=== PATIENT | female | born 2005 | race Hispanic/Latino ===

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

== ENCOUNTER 2024-03-29 00:14 | Emergency (ER) | payer MEDICAID ==
[~2024-03-29] VITALS: Ht 167.6 cm; Wt 93.0 kg
[~2024-03-29 00:14] MED LIST changes: +ASPI-1005 PO; +CEPH500B PO; +EMPA10TA PO; +FERS325 PO; +FURO20TA6 PO; +METF-446 PO; +METO25 PO; +PREN1COM PO; +SACU1TAB PO; +SERT-439 PO; +SPIR25TA6 PO; +TRAZ-185 PO
[2024-03-29 00:40] LABS: SARS-CoV-2, RNA, NAAT NEGATIVE SARS CoV-2 (NEGATIVE)
[2024-03-29 00:44] LABS: INFLUENZA TYPE A Negative For Type A (NEGATIVE); INFLUENZA TYPE B Negative For Type B (NEGATIVE)
[2024-03-29 00:47] LABS: RAPID GROUP A STREP positive (NEGATIVE)
[2024-03-29] MEDS: dexaMETHasone SOD PHOSPHATE 4 MG/ML 1ML VIAL IM ONE (00:49)
[2024-03-29] MEDS: cefTRIAXone 1G VIAL IM ONE (00:49)
[2024-03-29] MEDS ORDERED: AMOX1TAB16 PO (00:56)
--- NOTE | 2024-03-29 00:56 | ERN ---
General Chief Complaint: Fever Stated Complaint: FEVER Time Seen by : 00:22 Time Seen by Midlevel: 00:22 Source: patient History of Present Illness Initial Comments Patient is a 18-year-old female presenting to the emergency department with throat pain. She noticed white spots in the back of her throat so she decided to report to the ER further evaluation. Associated symptoms include fever, and generalized body weakness. Allergies: Coded Allergies: No Known Allergies (Unverified Allergy, Unknown, 12/06/23) Home Meds Active Scripts Amoxicillin/Potassium Clav (Amox Tr-K Clv 875-125 mg Tab) 875 Mg-125 Mg Tablet, 1 EACH PO BID for 10 Days, #20 TAB 0 Refills Prov:ALEXANDRA YANG 03/29/24 Ferrous Sulfate (Ferrous Sulfate) 325 Mg (65 Mg Iron) Ectab, 1 TAB PO DAILY for 30 Days, #30 TAB 1 Refill Prov:MESFIN RAMIREZ MD 02/08/24 Cephalexin Monohydrate (Keflex) 500 Mg Cap, 1 CAP PO TID for 7 Days, #21 CAP 0 Refills Prov:MESFIN RAMIREZ MD 02/07/24 Spironolactone (Spironolactone) 25 Mg Tablet, 25 MG PO DAILY for 30 Days, #30 TAB 1 Refill Prov:MESFIN RAMIREZ MD 02/07/24 Sacubitril/Valsartan (Entresto 24 mg-26 mg Tablet) 24 Mg-26 Mg Tablet, 1 EACH PO BID for 30 Days, #60 TAB 1 Refill Prov:MESFIN RAMIREZ MD 02/07/24 Metoprolol Tartrate (Lopressor) 25 Mg Tab, 25 MG PO TID for 30 Days, #90 TAB 1 Refill Prov:MESFIN RAMIREZ MD 02/07/24 Furosemide (Lasix 20Mg Tab) 20 Mg Tablet, 20 MG PO DAILY for 30 Days, #30 TAB 1 Refill Prov:MESFIN RAMIREZ MD 02/07/24 Empagliflozin (Jardiance) 10 Mg Tablet, 10 MG PO DAILY for 30 Days, #30 TAB 1 Refill Prov:MESFIN RAMIREZ MD 02/07/24 Ondansetron (Ondansetron Odt) 4 Mg Tab.rapdis, 4 MG PO BID for 7 Days, #14 TAB Prov:ALEXANDRA YANG 10/06/23 Reported Medications Aspirin (ASPIRIN 81MG CHEW TAB) 81 Mg Tab.chew, 1 TAB PO DAILY for 30 Days, #30 TAB 0 Refills 02/05/24 Metformin HCl (Metformin HCl) 1,000 Mg Tablet, 1 TAB PO BID for 30 Days, #60 TAB 0 Refills 02/05/24 Sertraline HCl (Sertraline HCl) 50 Mg Tablet, 1 TAB PO DAILY for 30 Days, #30 TAB 0 Refills 02/05/24 Prenat Vit Comb.10/Iron/FA/Dha (Vitafol-Ob+Dha Combo Pack) 65 Mg Iron-1 Mg-250 Mg Combo..pkg, 1 EACH PO DAILY, COMB.PKG 02/05/24 Trazodone HCl (Trazodone HCl) 50 Mg Tablet, 1 TAB PO HS for 30 Days, #30 TAB 0 Refills 02/05/24 Past Medical History Past Medical History: CHF, Diabetes-Type II Medical History Other: PREECLAMPSIA Past Surgical History: Female( History) LMP: Mar 08, 2024 : 1 Para: 1 Aborts: 0 ROS Dictation CONSTITUTIONAL: Negative except for HPI HEAD/FACE: Negative except for HPI EENT: Negative except for HPI RESPIRATORY: Negative except for HPI GASTROINTESTINAL/ABDOMINAL: Negative except for HPI GENITOURINARY: Negative except for HPI MUSCULOSKELETAL: Negative except for HPI INTEGUMENTARY: Negative except for HPI NEUROLOGICAL/PSYCH: Negative except for HPI HEMATOLOGIC/LYMPHATIC: Negative except for HPI All Systems Negative, Except as noted above. 13 point review of systems assessed and all negative except for above. Physical Exam Physical Exam Dictation Vital Signs reviewed General Appearance: Alert, oriented x 3, no acute distress, well developed, nourished. Head and Face: non-traumatic. Eyes: PERRL, pink conjunctivas, eyelid no trauma, anterior chamber with arcus senilis. Ears: Pinnas intact and no signs of trauma or erythema ear canals clear and no discharge TM no erythema Nose: No discharge, no bleeding. Oropharynx: Mouth normal, tongue pink, pharynx clear, erythema to the posterior oropharynx, bilateral tonsillar exudates, no abscesses noted, mucous membrane moist Neck: Supple, non-tender, no thyromegaly, no masses, no JVD, no bruits Breast:Deferred Chest:No tenderness, no crepitus, no paradoxical movement, no retractions Lungs:Clear, well-ventilated, symmetric, no rales, no wheezing, no rhonchi, no stridor, good breath sounds bilaterally Heart: Regular rate, regular rhythm, no murmur, no gallops Vascular: no peripheral edema, Abdomen: Soft, positive bowel sounds, nondistended, no guarding, nontender, no rebound, no masses no hepatomegaly, no splenomegaly, no Koehler's sign, no hernias. Rectal: Deferred Genital: Deferred Neurological: Normal speech, motor function intact, sensory function intact Musculoskeletal: Neck nontender, full range of motion, back nontender, full range of motion, Extremities: nontender, full range of motion Skin: Color pink, dry, no turgor, no rash, no lacerations, no abrasions, no contusions. Lymphatic: Deferred Results Laboratory and Microbiology Lab and Micro Result Laboratory Tests Test 03/29/24 00:18 Influenza Type A Antigen Negative For Type A Influenza Type B Antigen Negative For Type B SARS-CoV-2, RNA, NAAT NEGATIVE SARS CoV-2 Group A Streptococcus Rapid positive (NEGATIVE) *A Labs Reviewed?: Yes MDM MDM: Differential diagnosis: Viral syndrome, upper respiratory infection, strep There are no social concerns with this patient. Prescription drug management Prescriptions will include: Augmentin Medical management and examination interpretation discussions were had by me with other qualified healthcare professionals as indicated for the patient's care. ED Course Orders Procedure Category Date Status Time Covid Rna Naat LAB 03/29/24 Complete 00:19 Influenza Type A & B, LAB 03/29/24 Complete Rapid 00:19 Rapid (Group A Strep) LAB 03/29/24 Complete 00:19 Ceftriaxone 1g Vial PHA 03/29/24 Complete (Rocephine 1g Inj) 00:30 Dexamethasone 4mg/Ml PHA 03/29/24 Complete 1ml Vial (Dexametha 00:30 Current Medications Medications (Trade) Dose Ordered Sig/Alton Route PRN Reason Start Time Stop Time Status Last Admin Dose Admin Ceftriaxone Sodium (ROCEphine 1G INJ) 1 gm ONCE ONCE IM 03/29/24 00:30 03/29/24 00:31 DC 03/29/24 00:49 Dexamethasone Sodium Phosphate (dexaMETHasone 4MG/ML 1ML VIAL) 6 mg ONCE ONCE IM 03/29/24 00:30 03/29/24 00:31 DC 03/29/24 00:49 Vital Signs Date Time Temp Pulse Resp B/P (MAP) Pulse Ox O2 Delivery O2 Flow Rate FiO2 03/29/24 01:15 99.9 97 18 134/62 98 Room Air* 0 21 03/29/24 00:20 100.2 112 20 141/65 98 Room Air* 0 21 03/29/24 00:16 100.2 112 20 127/73 97 Room Air 0 DX & DISP Disposition: Discharge Departure Impression: Primary Impression: Strep pharyngitis Condition: Stable Scripts Amoxicillin/Potassium Clav (Amox Tr-K Clv 875-125 mg Tab) 875 Mg-125 Mg Tablet 1 EACH PO BID for 10 Days, #20 TAB 0 Refills Prov: ALEXANDRA YANG 03/29/24 Additional Instructions: Your physical examination is consistent with strep pharyngitis. Your respiratory swab is positive for strep. You were given antibiotics and steroids in the emergency department. I have given you a prescription for Augmentin for outpatient management. Take your antibiotics as prescribed. Follow up with your primary care doctor in one week for repeat evaluation. Return to the ER for any new or worsening symptoms Referrals: SELF,REFERRAL (PCP) Time of Disposition: 00:55 I have reviewed the case, and I agree with, Diagnosis and Plan I performed the substantive portion of the visit. I have reviewed and personally made and approve the management plan that is documented in the note by myself or the [facility]. I acknowledge for responsibility for the patient's management plan. ALEXANDRA YANG Mar 29, 2024 00:56
[2024-03-29 01:15] VITALS: BP 134/62; PULSE 97; RESP 18; TEMP 99.8; O2SAT 98
== END 2024-03-29 01:18 | disposition home or self-care (01) ==
LOC: EDH 00:14
DX: J02.0 Streptococcal pharyngitis (principal); E11.9 Type 2 diabetes mellitus without complications; I50.9 Heart failure, unspecified; Z20.822 Contact with and (suspected) exposure to COVID-19; Z79.82 Long term (current) use of aspirin; Z79.84 Long term (current) use of oral hypoglycemic drugs; Z79.899 Other long term (current) drug therapy
CPT/HCPCS: 99284; 87635; 87880; 87804 ×2; 96372 ×2; J1100; J0696

== ENCOUNTER 2024-04-28 18:50 | Emergency (ER) | payer MEDICAID ==
[~2024-04-28] VITALS: Ht 170.2 cm; Wt 129.3 kg
[~2024-04-28 18:50] MED LIST changes: +AMOX1TAB16 PO
--- NOTE | 2024-04-28 19:01 | ERN ---
ED Note History of Present Illness Stated Complaint: FLU SYMPTOMS Chief Complaint: Flu Symptoms Time Seen by MD: 18:58 Dictation: PATIENT IS A 18-YEAR-OLD FEMALE COMING IN WITH FLU-LIKE SYMPTOMS SHE HAS HAD FOR 2-3 DAYS TO INCLUDE FRONTAL HEADACHE, CLEAR RHINITIS WITH SORE THROAT AND DRY COUGH. SHE HAS HAD BODY ACHES, NO NAUSEA NO VOMITING NO DIARRHEA SHE HAS BEEN TAKEN TYLENOL NEEDED FOR FEVER PAIN. NO PRIMARY CARE DOCTOR. SHE STATES SHE WAS STAYING WITH SOME PEOPLE THAT WERE SICK WITH COVID HOWEVER SHE DID NOT GO TO THE DOCTOR BECAUSE OF NO MEDICAID. Allergies: Coded Allergies: No Known Allergies (Unverified Allergy, Unknown, 12/06/23) Home Meds Active Scripts Amoxicillin/Potassium Clav (Amox Tr-K Clv 875-125 mg Tab) 875 Mg-125 Mg Tablet, 1 EACH PO BID for 10 Days, #20 TAB 0 Refills Prov:ALEXANDRA YANG 03/29/24 Ferrous Sulfate (Ferrous Sulfate) 325 Mg (65 Mg Iron) Ectab, 1 TAB PO DAILY for 30 Days, #30 TAB 1 Refill Prov:MESFIN RAMIREZ MD 02/08/24 Cephalexin Monohydrate (Keflex) 500 Mg Cap, 1 CAP PO TID for 7 Days, #21 CAP 0 Refills Prov:MESFIN RAMIREZ MD 02/07/24 Spironolactone (Spironolactone) 25 Mg Tablet, 25 MG PO DAILY for 30 Days, #30 TAB 1 Refill Prov:MESFIN RAMIREZ MD 02/07/24 Sacubitril/Valsartan (Entresto 24 mg-26 mg Tablet) 24 Mg-26 Mg Tablet, 1 EACH PO BID for 30 Days, #60 TAB 1 Refill Prov:MESFIN RAMIREZ MD 02/07/24 Metoprolol Tartrate (Lopressor) 25 Mg Tab, 25 MG PO TID for 30 Days, #90 TAB 1 Refill Prov:MESFIN RAMIREZ MD 02/07/24 Furosemide (Lasix 20Mg Tab) 20 Mg Tablet, 20 MG PO DAILY for 30 Days, #30 TAB 1 Refill Prov:MESFIN RAMIREZ MD 02/07/24 Empagliflozin (Jardiance) 10 Mg Tablet, 10 MG PO DAILY for 30 Days, #30 TAB 1 Refill Prov:MESFIN RAMIREZ MD 02/07/24 Ondansetron (Ondansetron Odt) 4 Mg Tab.rapdis, 4 MG PO BID for 7 Days, #14 TAB Prov:ALEXANDRA YANG 10/06/23 Reported Medications Aspirin (ASPIRIN 81MG CHEW TAB) 81 Mg Tab.chew, 1 TAB PO DAILY for 30 Days, #30 TAB 0 Refills 02/05/24 Metformin HCl (Metformin HCl) 1,000 Mg Tablet, 1 TAB PO BID for 30 Days, #60 TAB 0 Refills 02/05/24 Sertraline HCl (Sertraline HCl) 50 Mg Tablet, 1 TAB PO DAILY for 30 Days, #30 TAB 0 Refills 02/05/24 Prenat Vit Comb.10/Iron/FA/Dha (Vitafol-Ob+Dha Combo Pack) 65 Mg Iron-1 Mg-250 Mg Combo..pkg, 1 EACH PO DAILY, COMB.PKG 02/05/24 Trazodone HCl (Trazodone HCl) 50 Mg Tablet, 1 TAB PO HS for 30 Days, #30 TAB 0 Refills 02/05/24 Past Medical History Past Medical History: CHF, Diabetes-Type II Additional Past Medical Hx: PREECLAMPSIA Surgical History: History: Not Applicable LMP: Mar 09, 2025 : 1 Para: 1 Aborts: 0 RN Note Reviewed/Agreed w/PFSH: Yes Review of System Dictation CONSTITUTIONAL: NEGATIVE EXCEPT FOR HPI FEVER CHILLS HEAD/FACE: NEGATIVE EXCEPT FOR HPI EENT: NEGATIVE EXCEPT FOR HPI CLEAR RHINITIS WITH MILD SORE THROAT RESPIRATORY: NEGATIVE EXCEPT FOR HPI COUGH GASTROINTESTINAL/ABDOMINAL: NEGATIVE EXCEPT FOR HPI GENITOURINARY: NEGATIVE EXCEPT FOR HPI MUSCULOSKELETAL: NEGATIVE EXCEPT FOR HPI MALAISE INTEGUMENTARY: NEGATIVE EXCEPT FOR HPI NEUROLOGICAL/PSYCH: NEGATIVE EXCEPT FOR HPI HEMATOLOGIC/LYMPHATIC: NEGATIVE EXCEPT FOR HPI ALL SYSTEMS NEGATIVE, EXCEPT NOTED ABOVE. 13 POINT REVIEW OF SYSTEMS ASSESSED AND ALL NEGATIVE EXCEPT FOR ABOVE. Initial Vital Sign VS Vital Signs Date Time Temp Pulse Resp B/P (MAP) Pulse Ox O2 Delivery O2 Flow Rate FiO2 04/28/24 18:55 101.8 130 20 133/67 97 Room Air 0 04/28/24 20:21 21 Physical Exam Dictation VITAL SIGNS REVIEWED GENERAL APPEARANCE: ALERT, ORIENTED X 3, NO ACUTE DISTRESS, WELL DEVELOPED, NOURISHED. MORBIDLY OBESE HEAD AND FACE: NON-TRAUMATIC. EYES: PERRL, PINK CONJUNCTIVAS, EYELID NO TRAUMA, ANTERIOR CHAMBER WITH ARCUS SENILIS. EARS: PINNAS INTACT AND NO SIGNS OF TRAUMA OR ERYTHEMA EAR CANALS CLEAR AND NO DISCHARGE TM NO ERYTHEMA NOSE: CLEAR DISCHARGE, NO BLEEDING. OROPHARYNX: MOUTH NORMAL, TONGUE PINK, PHARYNX CLEAR MODERATE PHARYNGEAL ERYTHEMA, TONSILS NO EXUDATES, NO ABSCESSES NOTED, MUCOUS MEMBRANE MOIST VOICE NECK: SUPPLE, NON-TENDER, NO THYROMEGALY, NO MASSES, NO JVD, NO BRUITS BREAST:DEFERRED CHEST:NO TENDERNESS, NO CREPITUS, NO PARADOXICAL MOVEMENT, NO RETRACTIONS LUNGS:CLEAR, WELL-VENTILATED, SYMMETRIC, NO RALES, NO WHEEZING, NO RHONCHI, NO STRIDOR, GOOD BREATH SOUNDS BILATERALLY HEART: REGULAR RATE, REGULAR RHYTHM, NO MURMUR, NO GALLOPS VASCULAR: NO PERIPHERAL EDEMA, ABDOMEN: SOFT, POSITIVE BOWEL SOUNDS, NONDISTENDED, NO GUARDING, NONTENDER, NO REBOUND, NO MASSES NO HEPATOMEGALY, NO SPLENOMEGALY, NO FORD'S SIGN, NO HERNIAS. RECTAL: DEFERRED GENITAL: DEFERRED NEUROLOGICAL: NORMAL SPEECH, MOTOR FUNCTION INTACT, SENSORY FUNCTION INTACT MUSCULOSKELETAL: NECK NONTENDER, FULL RANGE OF MOTION, BACK NONTENDER, FULL RANGE OF MOTION, EXTREMITIES: NONTENDER, FULL RANGE OF MOTION SKIN: COLOR PINK, DRY, NO TURGOR, NO RASH, NO LACERATIONS, NO ABRASIONS, NO CONTUSIONS. LYMPHATIC: DEFERRED Results (Laboratory/Radiology) Laboratory/Radiology Laboratory Tests Test 04/28/24 20:17 SARS-CoV-2 Antigen (Rapid) POSITIVE FOR SARS AG Group A Streptococcus Rapid negative (NEGATIVE) Labs Reviewed?: Yes ED Course ED Course Orders Procedure Category Date Status Time Covid19 (Sars Antigen LAB 04/28/24 In Process Rapid) 18:58 Rapid (Group A Strep) LAB 04/28/24 In Process 18:58 Influenza Type A & B, LAB 04/28/24 In Process Rapid 18:58 Acetaminophen 500mg PHA 04/28/24 Complete Tab (Tylenol 500mg T 19:00 Current Medications Medications (Trade) Dose Ordered Sig/Alton Route PRN Reason Start Time Stop Time Status Last Admin Dose Admin Acetaminophen (TYLenol 500MG TAB) 1,000 mg ONCE ONCE PO 04/28/24 19:00 04/28/24 19:01 DC 04/28/24 20:26 Vital Signs Date Time Temp Pulse Resp B/P (MAP) Pulse Ox O2 Delivery O2 Flow Rate FiO2 04/28/24 20:26 100.2 04/28/24 20:21 100.8 66 20 122/86 100 Room Air* 0 21 04/28/24 18:55 101.8 130 20 133/67 97 Room Air 0 2120 TEMPERATURE DOWN TO 100. PATIENT FEELS BETTER WE WILL BE DISCHARGED HOME WITH SUPPORTIVE ANTIBIOTICS AND MEDICATIONS FOR COVID TO INCLUDE PAXLOVID, ZITHROMAX, ALBUTEROL Medical Decision Making MDM MEDICAL DISCHARGE MAKING BASED ON SWABS FOR FLU COVID AND STREP PATIENT COVID POSITIVE WE WILL BE DISCHARGED HOME WITH PAXLOVID, A ZITHROMAX, ALBUTEROL TOLD PLENTY OF FLUIDS AND SEE HER PRIMARY CARE DOCTOR DX & DISP Disposition: Discharge Departure Impression: Primary Impression: COVID-19 virus infection Additional Impressions: Fever, Cough Condition: Stable Scripts Azithromycin (Zithromax Tri-Bruce) 500 Mg Tablet 500 MG PO DAILY for 7 Days, #7 TAB Prov: ROULA TAYLOR NP 04/28/24 Nirmatrelvir/Ritonavir (Paxlovid 300-100 mg Dose Pack) 300 Mg (150 Mg X 2)-100 Mg Tab.ds.pk 1 EACH PO AD for 5 Days, #30 TAB TAKE THREE TABLETS TOTAL TWICE A DAY FOR FIVE DAYS. Prov: ROULA TAYLOR NP 04/28/24 Albuterol Sulfate (Ventolin Hfa/Proventil Hfa/Proair Hfa) 90 Mcg Puff 2 PUFF IH Q4H for WHEEZING, #1 INHALER 0 Refills Prov: ROULA TAYLOR NP 04/28/24 Additional Instructions: FOLLOW-UP WITH PRIMARY CARE PROVIDER IN 1 TO 2 DAYS. TAKE MEDICATIONS DIRECTED HERE IN THE EMERGENCY ROOM. OKAY TO CONTINUE HOME MEDICATIONS UNLESS OTHERWISE DISCUSSED DURING YOUR VISIT IN THE EMERGENCY ROOM TODAY. RETURN TO YOUR NEAREST EMERGENCY ROOM IF SYMPTOMS WORSEN OR IF THERE IS NO IMPROVEMENT. CALL 911 IF YOU NEED IMMEDIATE ASSISTANCE. TAKE TYLENOL OR MOTRIN [id number] NEEDED AND IF NO CONTRAINDICATIONS ARE PRESENT. INCREASE ORAL HYDRATION. A WOUND CULTURE OR URINE CULTURE WAS ORDERED HERE IN THE EMERGENCY ROOM DEPARTMENT PLEASE FOLLOW-UP WITH PRIMARY CARE PROVIDER AND ADVISE THEM TO GET REPEAT PORTS FROM OUR FACILITY. IF YOU HAD ANY ISAURO WRAP/SPLINTS THAT WERE APPLIED HERE, PLEASE DO NOT REMOVE THEM UNTIL YOU SEE YOUR PRIMARY CARE OR SPECIALTY. TAKE PAXLOVID AND A ZITHROMAX DIRECTED UNTIL GONE. USE ALBUTEROL INHALER EVERY4 HOURS WHILE AWAKE FOR THE NEXT TWO DAYS. INCREASE YOUR WATER INTAKE. Referrals: SELF,REFERRAL (PCP) Time of Disposition: 21:24 I have reviewed the case, and I agree with, Diagnosis and Plan ROULA TAYLOR NP Apr 28, 2024 19:01
[2024-04-28] MEDS: acetaMINOPHEN 500 MG TABLET PO ONE (20:26)
[2024-04-28 20:50] LABS: RAPID GROUP A STREP negative (NEGATIVE)
[2024-04-28 21:14] LABS: COVID19 (SARS ANTIGEN RAPID) POSITIVE FOR SARS AG (NEGATIVE)
[2024-04-28 21:22] LABS: INFLUENZA TYPE A Negative For Type A (NEGATIVE); INFLUENZA TYPE B Negative For Type B (NEGATIVE)
[2024-04-28] MEDS ORDERED: ALBUHFA IH (21:30)
[2024-04-28] MEDS ORDERED: AZIT500T2 PO (21:30)
[2024-04-28] MEDS ORDERED: NIRM1TAB9 PO (21:30)
[2024-04-28 21:39] VITALS: TEMP 99.9
[2024-04-28 21:47] VITALS: BP 124/82; PULSE 64; RESP 20; TEMP 98.8; O2SAT 97
== END 2024-04-28 22:22 | disposition home or self-care (01) ==
LOC: EDH 18:50
DX: U07.1 COVID-19 (principal); E11.9 Type 2 diabetes mellitus without complications; I50.9 Heart failure, unspecified; E66.01 Morbid (severe) obesity due to excess calories; Z79.899 Other long term (current) drug therapy; Z79.82 Long term (current) use of aspirin; Z79.84 Long term (current) use of oral hypoglycemic drugs; Z98.890 Other specified postprocedural states
CPT/HCPCS: 87426; 87804; 87880; 99283

== ENCOUNTER 2024-08-12 04:51 | Observation (INO) | payer MEDICAID ==
[~2024-08-12] VITALS: Ht 167.6 cm; Wt 122.5 kg
[2024-08-12] VITALS (8 sets, daily range): BP systolic 130–148; BP diastolic 81–97; PULSE 81–92; RESP 18–20; TEMP 97.9–98.4; O2SAT 95–97
[~2024-08-12 04:51] MED LIST changes: +ALBUHFA IH; +AZIT500T2 PO; +NIRM1TAB9 PO
[2024-08-12 05:40] LABS: BASOPHILS # (AUTO) 0.02 K/uL (0.00-0.20); BASOPHILS % (AUTO) 0.3 % (0.0-5.0); EOSINOPHILS # (AUTO) 0.14 K/uL (0.00-0.70); EOSINOPHILS % (AUTO) 2.1 % (0.0-8.0); HEMATOCRIT 35.6 % (36-48); IMMATURE GRANULOCYTE ABSOLUTE 0.02 K/uL (0-1); LYMPHOCYTES # (AUTO) 2.6 K/uL (1.0-4.8); MEAN CORPUSCULAR HEMOGLOBIN 26.1 pg (27.0-33.0); MEAN CORPUSCULAR HGB CONC 30.6 g/dL (32.0-36.0); MEAN CORPUSCULAR VOLUME 85.4 fL (80-100); MONOCYTES # (AUTO) 0.3 K/uL (0.1-1.0); NEUTROPHILS # (AUTO) 3.7 K/uL (1.8-7.7); NEUTROPHILS % (AUTO) 54.3 % (40.0-77.0); PLATELET COUNT (AUTO) 449 K/uL (130-400); RED BLOOD CELL COUNT(AUTO) 4.17 MIL/uL (4.00-5.50); RED CELL DISTRIBUTION WIDTH 17.5 % (11.0-15.5); WHITE BLOOD COUNT (AUTO) 6.7 K/uL (4.8-10.8)
[2024-08-12 05:50] LABS: CREATININE 1.1 mg/dL (0.5-1.0); POTASSIUM 3.6 mmol/L (3.5-5.1)
[2024-08-12 05:56] LABS: INR 1.14 (0.85-1.15); PROTHROMBIN TIME 11.9 SEC (9.6-11.6)
[2024-08-12 05:57] LABS: PARTIAL THROMBOPLASTIN TIME 28.6 SEC (26.3-35.5)
[2024-08-12 06:06] LABS: B-TYPE NATRIURETIC PEPTIDE 414 pg/mL (0-100)
--- NOTE | 2024-08-12 06:56 | ERN ---
General Chief Complaint: Abdominal Pain Stated Complaint: C/O ABD PAIN BELOW BREAST TO LEFT SIDE W/ SOB Time Seen by MD: 06:08 Source: patient History of Present Illness Initial Comments Patient is a 19 year old female who has a history of cardiomegaly and severe pulmonary edema associated with the childbirth approximately six months ago. She comes in today with the same feeling of pain in her bilateral upper quadrants of her abdomen and the left side of her chest. She states that that is exactly how she felt when her lungs filled up with fluid before. She has no other systemic infections no fevers no upper respiratory tract infections no urinary or bowel changes. Allergies: Coded Allergies: No Known Allergies (Unverified Allergy, Unknown, 12/06/23) Home Meds Active Scripts Azithromycin (Zithromax Tri-Bruce) 500 Mg Tablet, 500 MG PO DAILY for 7 Days, #7 TAB Prov:ROULA TAYLOR NP 04/28/24 Nirmatrelvir/Ritonavir (Paxlovid 300-100 mg Dose Pack) 300 Mg (150 Mg X 2)-100 Mg Tab.ds.pk, 1 EACH PO AD for 5 Days, #30 TAB TAKE THREE TABLETS TOTAL TWICE A DAY FOR FIVE DAYS. Prov:ROULA TAYLOR NP 04/28/24 Albuterol Sulfate (Ventolin Hfa/Proventil Hfa/Proair Hfa) 90 Mcg Puff, 2 PUFF IH Q4H for WHEEZING, #1 INHALER 0 Refills Prov:ROULA TAYLOR NP 04/28/24 Amoxicillin/Potassium Clav (Amox Tr-K Clv 875-125 mg Tab) 875 Mg-125 Mg Tablet, 1 EACH PO BID for 10 Days, #20 TAB 0 Refills Prov:ALEXANDRA YANG 03/29/24 Ferrous Sulfate (Ferrous Sulfate) 325 Mg (65 Mg Iron) Ectab, 1 TAB PO DAILY for 30 Days, #30 TAB 1 Refill Prov:MESFIN RAMIREZ MD 02/08/24 Cephalexin Monohydrate (Keflex) 500 Mg Cap, 1 CAP PO TID for 7 Days, #21 CAP 0 Refills Prov:MESFIN RAMIREZ MD 02/07/24 Spironolactone (Spironolactone) 25 Mg Tablet, 25 MG PO DAILY for 30 Days, #30 TAB 1 Refill Prov:MESFIN RAMIREZ MD 02/07/24 Sacubitril/Valsartan (Entresto 24 mg-26 mg Tablet) 24 Mg-26 Mg Tablet, 1 EACH PO BID for 30 Days, #60 TAB 1 Refill Prov:MESFIN RAMIREZ MD 02/07/24 Metoprolol Tartrate (Lopressor) 25 Mg Tab, 25 MG PO TID for 30 Days, #90 TAB 1 Refill Prov:MESFIN RAMIREZ MD 02/07/24 Furosemide (Lasix 20Mg Tab) 20 Mg Tablet, 20 MG PO DAILY for 30 Days, #30 TAB 1 Refill Prov:MESFIN RAMIREZ MD 02/07/24 Empagliflozin (Jardiance) 10 Mg Tablet, 10 MG PO DAILY for 30 Days, #30 TAB 1 Refill Prov:MESFIN RAMIREZ MD 02/07/24 Ondansetron (Ondansetron Odt) 4 Mg Tab.rapdis, 4 MG PO BID for 7 Days, #14 TAB Prov:ALEXNADRA YANG 10/06/23 Reported Medications Aspirin (ASPIRIN 81MG CHEW TAB) 81 Mg Tab.chew, 1 TAB PO DAILY for 30 Days, #30 TAB 0 Refills 02/05/24 Metformin HCl (Metformin HCl) 1,000 Mg Tablet, 1 TAB PO BID for 30 Days, #60 TAB 0 Refills 02/05/24 Sertraline HCl (Sertraline HCl) 50 Mg Tablet, 1 TAB PO DAILY for 30 Days, #30 TAB 0 Refills 02/05/24 Prenat Vit Comb.10/Iron/FA/Dha (Vitafol-Ob+Dha Combo Pack) 65 Mg Iron-1 Mg-250 Mg Combo..pkg, 1 EACH PO DAILY, COMB.PKG 02/05/24 Trazodone HCl (Trazodone HCl) 50 Mg Tablet, 1 TAB PO HS for 30 Days, #30 TAB 0 Refills 02/05/24 Past Medical History Past Medical History: Heart Disease, Renal Disese Medical History Other: PREECLAMPSIA Past Surgical History: Unknown Female( History) History: Not Applicable LMP: August 11, 2024 : 1 Para: 1 Aborts: 0 Constitutional: (-) chills, (-) diaphoresis, (-) fever, (-) malaise, (-) weakness, (-) other documentation EENTM: (-) eye pain, (-) blurred vision, (-) tearing, (-) double vision, (-) ear pain, (-) ear discharge, (-) nose pain, (-) nose congestion, (-) throat pain, (-) Throat swelling, (-) mouth pain, (-) tooth pain, (-) mouth swelling, (-) other documentation Respiratory: (-) cough, (-) orthopnea, (-) short of breath, (-) stridor, (-) wheezing, (-) other documentation Cardiovascular: (-) chest pain, (-) edema, (-) palpitations, (-) syncope, (-) dyspnea on exertion, (-) other documentation Gastrointestinal/Abdominal: (-) nausea, (-) vomiting, (-) diarrhea, (-) abdominal pain, (-) abdominal distention, (-) constipation, (-) rectal bleeding, (-) dark stool/melena, (-) other documentation Musculoskeletal: (-) Neck pain, (-) back pain, (-) Flank Pain, (-) joint pain, (-) joint swelling, (-) muscle pain, (-) muscle stiffness, (-) gout, (-) other documentation Skin: (-) laceration, (-) contusion, (-) abrasion, (-) abscess, (-) rash, (-) change in color, (-) change in hair, (-) change in nails, (-) diaphoresis, (-) dryness, (-) other documentation Neuro: (-) altered mental status, (-) headache, (-) syncope, (-) paralysis, (-) numbness, (-) seizure, (-) pre-existing deficit, (-) tremors, (-) weakness, (-) dizziness, (-) slurred speech, (-) vertigo, (-) other documentation Physical Exam General Appearance: (+) mild distress Orientation: (+) alert Head/Face Trauma: No Eye: bilateral eye normal inspection, bilateral eye PERRL, bilateral eye EOMI Ear, Nose, Throat: (+) hearing grossly normal, (+) normal ENT inspection Neck: (+) normal inspection, (+) supple, (+) full range of motion Respiratory: (+) chest non-tender, (+) lungs clear, (+) well ventilated Heart: (+) regular, (+) no gallop Vascular: (+) no edema Gastrointestinal: (+) soft, (+) non-tender Gastrointestinal Comment Patient is morbidly obese but her abdomen is soft and bowel sounds are present. Results Laboratory and Microbiology Lab and Micro Result Laboratory Tests Test 08/12/24 05:30 08/12/24 06:59 White Blood Count 6.7 K/uL (4.8-10.8) Red Blood Count 4.17 MIL/uL (4.00-5.50) Hemoglobin 10.9 g/dL (12.0-16.0) L Hematocrit 35.6 % (36-48) L Mean Corpuscular Volume 85.4 fL (80-100) Mean Corpuscular Hemoglobin 26.1 pg (27.0-33.0) L Mean Corpuscular Hemoglobin Concent 30.6 g/dL (32.0-36.0) L Red Cell Distribution Width 17.5 % (11.0-15.5) H Platelet Count 449 K/uL (130-400) H Mean Platelet Volume 9.7 fL (7.5-10.5) Immature Granulocyte % (Auto) 0.3 % (0-1) Neutrophils (%) (Auto) 54.3 % (40.0-77.0) Lymphocytes (%) (Auto) 39.0 % (21.0-51.0) Monocytes (%) (Auto) 4.0 % (3.0-13.0) Eosinophils (%) (Auto) 2.1 % (0.0-8.0) Basophils (%) (Auto) 0.3 % (0.0-5.0) Neutrophils # (Auto) 3.7 K/uL (1.8-7.7) Lymphocytes # (Auto) 2.6 K/uL (1.0-4.8) Monocytes # (Auto) 0.3 K/uL (0.1-1.0) Eosinophils # (Auto) 0.14 K/uL (0.00-0.70) Basophils # (Auto) 0.02 K/uL (0.00-0.20) Absolute Immature Granulocyte (auto 0.02 K/uL (0-1) Nucleated Red Blood Cells 0.0 % (0.0-0.19) Red Blood Cell Morphology See comments Prothrombin Time 11.9 SEC (9.6-11.6) H Prothromb Time International Ratio 1.14 (0.85-1.15) Activated Partial Thromboplast Time 28.6 SEC (26.3-35.5) Sodium Level 140 mmol/L (136-145) Potassium Level 3.6 mmol/L (3.5-5.1) Chloride Level 105 mmol/L (101-111) Carbon Dioxide Level 25 mmol/L (21-32) Blood Urea Nitrogen 22 mg/dL (7-18) H Creatinine 1.1 mg/dL (0.5-1.0) H Glomerular Filtration Rate Calc 74 mL/min (>90) Random Glucose 103 mg/dL (70-105) Total Calcium 8.9 mg/dL (8.5-10.1) Troponin I High Sensitivity 17 ng/L (4-50) B-Type Natriuretic Peptide 414 pg/mL (0-100) H Serum Test, Qualitative NEGATIVE (NEGATIVE) Urine Color LIGHT-YELLOW (YELLOW) Urine Appearance CLEAR (CLEAR) Urine pH 5.5 (5.0-8.0) Urine Specific [place] 1.027 (1.001-1.031) Urine Protein 20 mg/dL (NEGATIVE) H Urine Glucose (UA) NEGATIVE mg/dL (NEGATIVE) Urine Ketones NEGATIVE mg/dL (NEGATIVE) Urine Occult Blood NEGATIVE (NEGATIVE) Urine Nitrate NEGATIVE (NEGATIVE) Urine Bilirubin NEGATIVE mg/dL (NEGATIVE) Urine Urobilinogen 0.2 mg/dL (0.2-1.0) Urine Leukocyte Esterase NEGATIVE Herlinda/uL Urine RBC 0-1 /HPF (0-1) Urine WBC 2-5 /HPF (0-1) H Urine Squamous Epithelial Cells FEW /HPF (0-2) Urine Bacteria RARE /HPF (None Seen) Urine HCG, Qualitative NEGATIVE (NEGATIVE) Labs Reviewed?: Yes EKG/XRAY/US/CT/MRI CT Scan Comment [address] [place] [address], [place] [address] IMAGING REPORT Signed PATIENT: ROSELIA FRIEND MR#: [id number] : 2005 SEX: F AGE: 19 LOCATION: ED ORDER STATUS: REG ER REPORT#: [id number] SERVICE REASON: pulmonary edema ORDERING PHYSICIAN: NARINDER MALONEY MD PROCEDURE: CHEST WO - CT CHEST W/O CONTRAST CT CHEST W/O CONTRAST HISTORY: Pulmonary edema COMPARISON: None TECHNIQUE: Multiple sequential axial images of the chest were obtained from the thoracic inlet through upper abdomen. Patient was not given contrast through intravenous route. FINDINGS: Minimal septal thickening is seen may be related to minimal interstitial edema. There is no evidence of pulmonary nodule or parenchymal disease. No pleural effusion or pericardial effusion is seen. There is no evidence of pneumothorax. There are normal size mediastinal and hilar lymph nodes. The heart is not enlarged. Degenerative changes of the thoracolumbar spine are present. There is no evidence of adrenal nodule. Fatty changes of the liver are noted. IMPRESSION: 1. Minimal septal thickening may be related to minimal interstitial edema. CT was performed with one or more following dose reduction techniques: automated exposure control, adjustment of the mA and kv according to patient's size, or use of a iterative reconstruction technique. DICTATED BY: NICHOLAS CARDOSO MD DATE: 08/12/24849 ELECTRONICALLY SIGNED BY: NICHOLAS CARDOSO MD DATE: 08/12/24853 [facility] MDM: DIFFERENTIAL DIAGNOSIS: PULMONARY CONGESTION, SHORTNESS OF BREATH, RATIONALE: TESTS CONSIDERED AND ORDERED SECONDARY TO SHARED DECISION MAKING INCLUDE: LABS, ECG AND RADIOLOGY PREVIOUS OUTSIDE RECORDS REVIEWED: OLD ER VISITS. RISK OF COMPLICATION AND/OR MORBIDITY OR MORTALITY OF PATIENT MANAGEMENT: NONE MEDICATIONS-PER MEDICATION RECONCILIATION NEED FOR HOSPITALIZATION: PATIENT DOES MEET CRITERIA FOR HOSPITALIZATION. NEED FOR EMERGENCY MAJOR/MINOR SURGERY: NO THERE ARE NO SOCIAL CONCERNS WITH THIS PATIENT. PRESCRIPTION DRUG MANAGEMENT PRESCRIPTIONS WILL INCLUDE SYMPTOMATIC CARE PATIENT'S PRIOR EXTERNAL MEDICAL RECORDS FROM OTHER ER VISITS WERE REVIEWED BY ME INDICATED. PRIOR TESTING AND RESULTS FROM PREVIOUS VISITS WERE REVIEWED. PRIOR TESTS WERE TAKEN INTO ACCOUNT WITH MEDICAL DECISION MAKING AND RESOURCE UTILIZATION, INDEPENDENT HISTORIAN/HISTORIANS WERE USED TO OBTAIN COMPLETE MEDICAL HISTORY. I INDEPENDENTLY INTERPRETED THE TEST THAT WERE PERFORMED, RESULTS WERE REVIEWED BY ME AND CONSIDERED FINDINGS ON RADIOLOGY IF ORDERED. MEDICAL MANAGEMENT AND EXAMINATION INTERPRETATION DISCUSSIONS WERE HAD BY ME WITH OTHER QUALIFIED HEALTHCARE PROFESSIONALS INDICATED FOR THE PATIENT'S CARE. PATIENT WILL BE ADMITTED UNDER THE CARE OF HOSPITALIST GROUP FOR ONGOING MANAGEMENT OF HEART FAILURE. ED Course Orders Procedure Category Date Status Time Cbc With Differential LAB 08/12/24 Complete 05:23 Basic Metabolic Panel LAB 08/12/24 Complete 05:23 B-Type Natriuretic LAB 08/12/24 Complete Peptide 05:23 Troponin I High LAB 08/12/24 Complete Sensitivity 05:23 Testing, LAB 08/12/24 Complete Serum Hcg 05:23 12 Lead Ekg Tracing- EKG 08/12/24 Complete Technical 05:23 Chest 1vw RAD 08/12/24 Taken 05:23 Pt And Ptt LAB 08/12/24 Complete 05:31 Urinalysis Profile LAB 08/12/24 Complete 06:56 Ct Chest W/O Contrast CT 08/12/24 Resulted 06:56 ,Urine Test LAB 08/12/24 Complete 06:56 Vital Signs Date Time Temp Pulse Resp B/P (MAP) Pulse Ox O2 Delivery O2 Flow Rate FiO2 08/12/24 07:30 97.9 94 22 126/87 99 Room Air* 0 08/12/24 06:40 96 18 172/92 96 Room Air* 0 08/12/24 05:44 97 20 150/95 98 Room Air* 0 08/12/24 04:52 98.4 95 20 147/92 96 Room Air DX & DISP Disposition: Inpatient Decision to Admit Time: 09:21 Departure Impression: Primary Impression: Pulmonary congestion Condition: Stable Referrals: SELF,REFERRAL (PCP) NARINDER MALONEY MD August 12, 2024 06:56 AZAR OLIVAS MD August 12, 2024 09:21
[2024-08-12 07:08] LABS: APPEARANCE,URINE CLEAR (CLEAR); BILIRUBIN,URINE NEGATIVE (NEGATIVE); COLOR,URINE LIGHT-YELLOW (YELLOW); GLUCOSE, URINE (UA) NEGATIVE (NEGATIVE); KETONES,URINE NEGATIVE (NEGATIVE); LEUKOCYTE ESTERASE ,URINE NEGATIVE Leu/uL (NEGATIVE); NITRATE,URINE NEGATIVE (NEGATIVE); OCCULT BLOOD,URINE NEGATIVE (NEGATIVE); PH,URINE 5.5 (5.0-8.0); PROTEIN,URINE 20 mg/dL (NEGATIVE); UROBILINOGEN,URINE 0.2 mg/dL (0.2-1.0)
[2024-08-12 07:09] LABS: HCG,QUALITATIVE URINE NEGATIVE (NEGATIVE)
[2024-08-12 07:11] LABS: ADD UA MICROSCOPIC YES
[2024-08-12 07:14] LABS: BACTERIA,URINE RARE /HPF (None Seen); MUCUS,URINE RARE LPF (None Seen); RBC,URINE 0-1 /HPF (0-1); SQUAMOUS EPITHELIAL CELL,UR FEW /HPF (0-2)
--- NOTE | 2024-08-12 08:14 | EKG ---
[facility] Test Date: 2024-08-12 Test Time: 05:34:03 Pat Name: ROSELIA FRIEND Department: [facility] Room: 229 Gender: F Briar Wood Sorter: [id number] : 2005 Requested By: NARINDER MALONEY Order Number: [id number] Reading MD: Shadi Vicente Measurements Intervals Leon Rate: 94 P: 44 DE: 209 QRS: 66 QRSD: 100 T: 52 QT: 389 QTc: 486 Interpretive Statements Sinus rhythm Prolonged DE interval Probable left atrial enlargement Left ventricular hypertrophy Compared to ECG 02/08/2024 09:05:20 First degree AV block now present Sinus tachycardia no longer present Electronically Signed On 08-12-2024 22:29:41 CDT by Shadi Vicente Please click the below link to view image of tracing.
--- NOTE | 2024-08-12 08:54 | HMCIMG ---
CT CHEST W/O CONTRAST HISTORY: Pulmonary edema COMPARISON: None TECHNIQUE: Multiple sequential axial images of the chest were obtained from the thoracic inlet through upper abdomen. Patient was not given contrast through intravenous route. FINDINGS: Minimal septal thickening is seen may be related to minimal interstitial edema. There is no evidence of pulmonary nodule or parenchymal disease. No pleural effusion or pericardial effusion is seen. There is no evidence of pneumothorax. There are normal size mediastinal and hilar lymph nodes. The heart is not enlarged. Degenerative changes of the thoracolumbar spine are present. There is no evidence of adrenal nodule. Fatty changes of the liver are noted. IMPRESSION: 1. Minimal septal thickening may be related to minimal interstitial edema. CT was performed with one or more following dose reduction techniques: automated exposure control, adjustment of the mA and kv according to patient's size, or use of a iterative reconstruction technique.
--- NOTE | 2024-08-12 09:18 | HMCIMG ---
CHEST 1VW HISTORY: Shortness of breath, chest pain COMPARISON: 02/07/2024 FINDINGS: A frontal projection of the chest was obtained. No acute pulmonary infiltrates is seen. The heart is borderline enlarged. Prominent interstitial markings are seen. Mild degenerative changes are seen No evidence of aortic calcification is seen. IMPRESSION: 1. No acute pulmonary infiltrate is seen. Prominent interstitial markings.
[2024-08-12] MEDS: furoSEMIDE 40MG VIAL IV SCH (09:53)
[2024-08-12] MEDS ORDERED: acetaMINOPHEN 325 MG TAB PO PRN (10:00)
[2024-08-12] MEDS ORDERED: PoTASSium chl 10% ELIXIR 20MEQ 20 MEQ/15 ML UDCUP PO PRN ×2 (10:00→16:30)
[2024-08-12] MEDS ORDERED: PoTASSium chloRIDE 20MEQ/100ML 100 ML IV PRN ×2 (10:00→16:30)
[2024-08-12] MEDS ORDERED: ondanSETRON 4MG INJ IVP PRN (10:00)
--- NOTE | 2024-08-12 10:09 | HP ---
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 She has noticed that she has been having increased dyspnea on exertion and family present at bedside states that they have noticed that patient has been having shortness of breath with exertional activities. She reports having mild orthopnea and PND. Patient was previously hospitalized in [facility] in January, after she was found to have heart failure exacerbation. Patient received IV diuresis and was discharged home on Lasix, metoprolol, Entresto, Jardiance and spironolactone. Patient states that she has been having hard time following up as outpatient with her primary bun panner due to issues with her medical insurance. She currently takes Lasix 20 mg daily. Family reports that she also has a history of snoring and uncontrolled symptoms of sleep apnea. She has not had outpatient sleep study done. Presentation to the hospital, patient was noted to be afebrile with T-max of 98.4 F, heart rate of 95, Labs on presentation showed WBC count of 6700, hemoglobin 10.9, platelet count of 745587. BMP remarkable for sodium 140, potassium 3.6, CO2 of 25, BUN of 22, creatinine 1.1, BNP was elevated to 414. CT chest without contrast showed findings of interstitial pulmonary edema. Patient will be admitted for further treatment and management of acute systolic and diastolic heart failure exacerbation with underlying history of peripartum cardiomyopathy. Patient will be initiated on IV diuresis with Lasix. Consultation with Cardiology will be requested. We will monitor this patient closely. Patient also with underlying obesity and uncontrolled symptoms of sleep apnea, we will have pulmonology follow up with this patient. REVIEW OF SYSTEMS CONSTITUTIONAL: Denies fevers, chills, or night sweats. No unintentional weight loss reported. NEUROLOGICAL: Denies headache, amaurosis fugax, motor weakness, sensory deficit, vertigo/spinning sensation, gait abnormalities, or tremors. ENT: No hearing loss, otalgia, otorrhea, rhinitis, rhinorrhea, hoarseness, or sore throat. CARDIOVASCULAR: SOB, PND, orthopnea, ADAN, mild lower extremity edema PULMONARY: Denies any shortness of breath, cough, phlegm/sputum, hemoptysis, pleuritic chest pain. SLEEP: Denies morning headaches, daytime somnolence or napping. Denies difficulty falling asleep, staying asleep, waking from sleep. Denies knowledge of snoring. GASTROINTESTINAL: epigastric discomfort, early satiety GENITOURINARY: Denies frequency, urgency, nocturia, hematuria or incontinence (Storage/Irritative symptoms.) Low urinary stream, straining to void, urinary intermittency or hesitancy, splitting of the voiding stream, terminal dribbling. ENDOCRINOLOGIC: Denies polyuria, polydipsia, polyphagia or heat/cold intolerances. HEMATOLOGIC: Denies thrombophilia/previous clots, or coagulopathy/bleeding disorders. ONCOLOGIC: Denies personal history of malignancy. DERMATOLOGIC: Denies rashes or pruritus. PSYCHIATRIC: Denies any suicidal or homicidal ideation. Denies hallucinations. PAST MEDICAL HISTORY: Hypertension, obesity, type 2 diabetes mellitus, history of peripartum cardiomyopathy with LVEF of 35-40%, history of severe tricuspid regurgitation, history of severe mitral regurgitation, suspected pulmonary hypertension from underlying heart failure, uncontrolled and untreated obstructive sleep apnea, morbid obesity PAST SURGICAL HISTORY: History of in 01/31/2024 PAST SOCIAL HISTORY: Denies any active tobacco use or alcohol consumption, uses marijuana occasionally FAMILY HISTORY: Heart disease, diabetes, history of lupus in family Allergies: No known drug allergies Home medications: Patient reports being on Lasix, spironolactone, Entresto, we will be bringing list of home medications to update dosage Coded Allergies: No Known Allergies (Unverified Allergy, Unknown, 12/06/23) PHYSICAL EXAM GENERAL APPEARANCE: The patient is awake, alert, sitting up on the stretcher, appears tachypneic NEUROLOGICAL: Cranial nerves II-XII grossly intact. Motor is 5/5 in bilateral upper and lower extremities proximal to distal. No sensory deficits. HEENT: Face is symmetric. Pupils are equal and reactive. Extraocular movements are intact. NECK: Supple. No JVD. No thyromegaly. No submental, submandibular, pre- /postauricular, occipital or supraclavicular lymphadenopathy. CHEST: Normal chest expansion. No Telemetry. LUNGS: Crackles noted bilateral lung bases CARDIOVASCULAR: Regular. S1 and S2 normal. No appreciable rubs, murmurs or gallops. ABDOMEN: Soft, nontender, and nondistended. There is no rebound, voluntary guarding, or rigidity. : Deferred. No Morgan. EXTREMITIES: 1+ pitting edema noted of bilateral lower extremity SKIN: No skin breakdown. Vital Sign (Last 24 Hours) 08/12/24 09:59 Temp 97.7 Pulse 90 Resp 15 B/P (MAP) 142/87 Pulse Ox 98 O2 Delivery Room Air* O2 Flow Rate 0 FiO2 21 LABS: Laboratory: Test 08/12/24 06:59 08/12/24 05:30 Range/Units Urine Color LIGHT-YELLOW YELLOW Urine Appearance CLEAR CLEAR Urine pH 5.5 5.0-8.0 Urine Specific [place] 1.027 1.001-1.031 Urine Protein 20 H NEGATIVE mg/dL Urine Glucose (UA) NEGATIVE NEGATIVE mg/dL Urine Ketones NEGATIVE NEGATIVE mg/dL Urine Occult Blood NEGATIVE NEGATIVE Urine Nitrate NEGATIVE NEGATIVE Urine Bilirubin NEGATIVE NEGATIVE mg/dL Urine Urobilinogen 0.2 0.2-1.0 mg/dL Urine Leukocyte Esterase NEGATIVE NEGATIVE [place]inda/uL Urine RBC 0-1 0-1 /HPF Urine WBC 2-5 H 0-1 /HPF Urine Squamous Epithelial Cells FEW 0-2 /HPF Urine Bacteria RARE None Seen /HPF Urine HCG, Qualitative NEGATIVE NEGATIVE White Blood Count 6.7 4.8-10.8 K/uL Red Blood Count 4.17 4.00-5.50 MIL/uL Hemoglobin 10.9 L 12.0-16.0 g/dL Hematocrit 35.6 L 36-48 % Mean Corpuscular Volume 85.4 80-100 fL Mean Corpuscular Hemoglobin 26.1 L 27.0-33.0 pg Mean Corpuscular Hemoglobin Concent 30.6 L 32.0-36.0 g/dL Red Cell Distribution Width 17.5 H 11.0-15.5 % Platelet Count 449 H 130-400 K/uL Mean Platelet Volume 9.7 7.5-10.5 fL Immature Granulocyte % (Auto) 0.3 0-1 % Neutrophils (%) (Auto) 54.3 40.0-77.0 % Lymphocytes (%) (Auto) 39.0 21.0-51.0 % Monocytes (%) (Auto) 4.0 3.0-13.0 % Eosinophils (%) (Auto) 2.1 0.0-8.0 % Basophils (%) (Auto) 0.3 0.0-5.0 % Neutrophils # (Auto) 3.7 1.8-7.7 K/uL Lymphocytes # (Auto) 2.6 1.0-4.8 K/uL Monocytes # (Auto) 0.3 0.1-1.0 K/uL Eosinophils # (Auto) 0.14 0.00-0.70 K/uL Basophils # (Auto) 0.02 0.00-0.20 K/uL Absolute Immature Granulocyte (auto 0.02 0-1 K/uL Nucleated Red Blood Cells 0.0 0.0-0.19 % Red Blood Cell Morphology See comments Prothrombin Time 11.9 H 9.6-11.6 SEC Prothromb Time International Ratio 1.14 0.85-1.15 Activated Partial Thromboplast Time 28.6 26.3-35.5 SEC Sodium Level 140 136-145 mmol/L Potassium Level 3.6 3.5-5.1 mmol/L Chloride Level 105 101-111 mmol/L Carbon Dioxide Level 25 21-32 mmol/L Blood Urea Nitrogen 22 H 7-18 mg/dL Creatinine 1.1 H 0.5-1.0 mg/dL Glomerular Filtration Rate Calc 74 >90 mL/min Random Glucose 103 70-105 mg/dL Total Calcium 8.9 8.5-10.1 mg/dL Troponin I High Sensitivity 17 4-50 ng/L B-Type Natriuretic Peptide 414 H 0-100 pg/mL Serum Test, Qualitative NEGATIVE NEGATIVE Current Medications Medications (Trade) Dose Ordered Sig/[place] Route PRN Reason Start Time Stop Time Status Last Admin Dose Admin Acetaminophen (TYLenol 325MG TAB) 650 mg Q6H PRN PO MILD PAIN (1-3) 08/12/24 10:00 09/11/24 09:59 Empaglifozin (Jardiance 10mg) 10 mg DAILY PO 08/13/24 09:00 09/12/24 08:59 Enoxaparin Sodium (Lovenox) 40 mg DAILY SQ 08/13/24 09:00 09/12/24 08:59 Famotidine (Pepcid 20mg Tab) 20 mg BID PO 08/12/24 21:00 09/11/24 20:59 Furosemide (LASix 40MG VIAL) 40 mg Q12H IV 08/12/24 10:00 09/11/24 09:59 08/12/24 09:53 40 MG Insulin Human Regular (humuLIN R 100 UNIT/ML 3ML) INSULIN SLIDING SCAL... ACHS SQ 08/12/24 11:30 09/11/24 11:29 Magnesium Sulfate 50 ml @ 0 mls/hr PROTOCOL IV 08/12/24 10:00 09/11/24 09:59 Metoprolol Succinate (TopROL XL) 25 mg DAILY PO 08/13/24 09:00 09/12/24 08:59 Ondansetron HCl (zoFRAN 4MG INJ) 4 mg Q6H PRN IVP NAUSEA/VOMITING 08/12/24 10:00 09/11/24 09:59 Potassium Chloride 100 ml @ 100 mls/hr AD PRN IV POTASSIUM PROTOCOL 08/12/24 10:00 09/11/24 09:59 Potassium Chloride (K-Dur/Klor-Con 20meq) 20 meq AD PRN PO POTASSIUM PROTOCOL 08/12/24 10:00 09/11/24 09:59 Potassium Chloride (KCl 10% Elixir 20meq/15ml) 20 meq AD PRN PO POTASSIUM PROTOCOL 08/12/24 10:00 09/11/24 09:59 Sacubitril/ Valsartan (Entresto 24 Mg-26 Mg Tablet) 1 each BID PO 08/12/24 21:00 09/11/24 20:59 DIAGNOSTICS / RADIOLOGY: SERVICE [id number] REASON: pulmonary edema ORDERING PHYSICIAN: NARINDER MALONEY MD PROCEDURE: CHEST WO - CT CHEST W/O CONTRAST CT CHEST W/O CONTRAST HISTORY: Pulmonary edema COMPARISON: None TECHNIQUE: Multiple sequential axial images of the chest were obtained from the thoracic inlet through upper abdomen. Patient was not given contrast through intravenous route. FINDINGS: Minimal septal thickening is seen may be related to minimal interstitial edema. There is no evidence of pulmonary nodule or parenchymal disease. No pleural effusion or pericardial effusion is seen. There is no evidence of pneumothorax. There are normal size mediastinal and hilar lymph nodes. The heart is not enlarged. Degenerative changes of the thoracolumbar spine are present. There is no evidence of adrenal nodule. Fatty changes of the liver are noted. IMPRESSION: 1. Minimal septal thickening may be related to minimal interstitial edema. CT was performed with one or more following dose reduction techniques: automated exposure control, adjustment of the mA and kv according to patient's size, or use of a iterative reconstruction technique. DICTATED BY: NICHOLAS CARDOSO MD DATE: 08/12/24849 ELECTRONICALLY SIGNED BY: NICHOLAS CARDOSO MD DATE: 08/12/24853 ASSESSMENT: Acute systolic and diastolic heart failure exacerbation with history of LV EF of 35-40%, POA History of peripartum cardiomyopathy, POA Pulmonary edema, POA History of severe tricuspid regurgitation, POA History of severe mitral valve regurgitation, POA Morbid obesity, POA Untreated obstructive sleep apnea, POA Underlying history of hypertension , POA History of type 2 diabetes mellitus , POA History of chronic anemia, POA PLAN: Patient will be admitted to cardiac telemetry floor We will start IV diuresis with Lasix at 40 mg q.12h Fluid restrictions 1.5 L daily We will obtain 2D echocardiogram to assess LVEF and valvulopathy We will obtain lower extremity venous duplex to rule out any occult DVT Patient to continue with guideline directed medical therapy including Entresto, metoprolol succinate, and Jardiance Patient has been having issues with following up as outpatient with Cardiology, we will have Cardiology follow this patient while inpatient We will start patient on CPAP therapy for management of poorly controlled obstructive sleep apnea, we will have pulmonology follow up with this patient, we will need to arrange outpatient sleep study We will maintain potassium greater than four and magnesium greater than two All labs will be repeated in the morning, we will also check TRINITY, rheumatoid factor with a.m. labs, patient does report having family history of lupus DVT prophylaxis with Lovenox GI prophylaxis with Pepcid Date of service: 08/12/2024 Plan of care was discussed with patient and family at bedside, Juan Miguel Parada MD Advanced Care Planning: Which of the following were discussed: Hospice care: Yes __ No _X_ Therapeutic options: Yes X__ No __ Advance directives: Yes _X_ No __ Other discussions: Discussed with who?: Patient Voluntary nature of this service was explained to the patient? Yes _x_ No __ Amount of time spent: 20 minutes JUAN MIGUEL PARADA MD August 12, 2024 10:09
[2024-08-12 10:34] LABS: HEMOGLOBIN A1C 6.4 % (4.0-6.0)
--- NOTE | 2024-08-12 10:41 | NUR ---
dr simental completed the pulmonology consult. also, dr simental paged dr hull awating call back. dr simental will speak to dr hull
[2024-08-12 10:44] LABS: ALBUMIN 3.4 g/dL (3.5-5.0); BILIRUBIN,DIRECT 0.1 mg/dL (0.0-0.3); BILIRUBIN,TOTAL 0.6 mg/dL (0.2-1.0); MAGNESIUM 1.7 mg/dL (1.80-2.40); THYROID STIMULATING HORMONE 2.29 uIU/mL (0.36-3.74); TOTAL PROTEIN, SERUM 6.9 g/dL (6.0-8.3)
[2024-08-12] MEDS: INSULIN humuLIN R 100 UNIT/ML 3ML SQ SCH (11:30)
[2024-08-12 12:04] LABS: ABG BASE EXCESS -0.1 mmol/L (-2.0-3.0); ABG OXYGEN SATURATION 97.6 % (94.0-98.0); ABG PCO2 33 mmHg (32-45); ABG PH 7.463 (7.350-7.450); CARBON MONOXIDE 0.6 % (0.5-1.5); HHb 2.4; PO2, ARTERIAL BG 101.2 mmHg (83.0-108.0); VENT MODE, BG RA (ROOM AIR)
--- NOTE | 2024-08-12 13:00 | CONS ---
[facility] CONSULTATION NOTE Date Patient Seen: August 12, 2024 Time of Visit: 13:00 Supervising Physician: Talya Cifuentes MD Reason for Consultation: UNTREATED SLEEP APNEA Primary Care Physician: SELF REFERRAL Outpatient Specialists: [NONE Inpatient Consults: JESSICA/ DR RANDHAWA PROBLEM LIST: Acute systolic and diastolic heart failure exacerbation with history of LV EF of 35-40% on previous echo, POA Suspected undiagnosed and untreated POPEYE/OHS, POA Morbid obesity BMI 44.5, POA Underlying history of hypertension , POA CKD stage 2 Hyperglycemia, POA Chronic anemia, POA Thrombocytosis, POA Hypomagnesemia Mild hypoalbuminemia Hypertension, obesity, type 2 diabetes mellitus, 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 Pulmicort q.12 PRN Smoking cessation education Continue diuresing with Lasix DC spironolactone due to GEORGE PFTs ABGs Swab for flu and COVID Electrolyte management and replacement per protocol GI and DVT prophylaxis -Arrange outpatient pulmonology referral for sleep study, PFT and follow-up management upon discharge -follow cardiology recommendations CPAP pressure support of 10 50% FiO2 at HS HPI: This is a morbidly obese 19-year-old female current smoker with a past medical history severe pulmonary hypertension, heart failure with previous EF of 35-40% 2/2 to -induced cardiomyopathy, severe tricuspid regurgitation, suspected undiagnosed and untreated POPEYE,/OHS,CKD stage II essential hypertension, in the anemia who presented to the ED for evaluation of diaphragmatic pain with shortness of breaths that started last night. Patient reports progressive shortness of breath. She reports mild orthopnea. 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 On arrival to ED blood pressure was 147/92 heart rate of 95 saturating 96% at room air with respiratory rate of 20 and afebrile. H&H is 10.9/35.6 white count and neutrophils are normal. On chemistry creatinine is 1.1 with a GFR of 74 consistent with a CKD, BNP 414, serum negative magnesium of 1.70 hemoglobin A1c 6.4 CRP of 16.60 albumin of 3.4 procalcitonin negative. Chest x-ray showed no acute pulmonary infiltrates, prominent interstitial markings. On CT chest minimal septal thickening may be related to minimal interstitial edema. Ultrasound bilateral lower extremities negative for DVT. Patient was admitted to PCCU by primary team and we are consulted for untreated sleep apnea. On assessment patient has no apparent distress. She is awake alert and oriented x3. She denies any further diaphragmatic pain. She does report however some dyspnea with moderate exertion. Patient is currently hemodynamically stable saturating 98% on room air and afebrile. ABG ordered and resulted with a pH of 7.46 pCO2 of 33 PO2 of 101.2 bicarb 23 and O2 saturation of 97.6. We will order CPAP for HS with pressure support of 10 with a FiO2 of 40% as tolerated. 2 D echo pending. PAST MEDICAL HX: see above PAST SURGICAL HX: noncontributory SOCIAL HISTORY: No tobacco, ETOH, or illicit drug use Coded Allergies: No Known Allergies (Unverified Allergy, Unknown, 12/06/23) REVIEW OF SYSTEMS: General: No malaise or fever. Neurological: No fainting episodes or seizures. HEENT: No nasal congestion or nasal secretion. Respiratory: Yes for dyspnea on moderate exertion Cardiac: No chest pain or palpitations. Gastrointestinal: No vomiting or diarrhea. Genitourinary: No dysuria hematuria. Skin: No rashes or lesions. Hematological: No bruises or bleeding. Musculoskeletal: No joint pains or arthralgias. Psychiatric: No depression or panic attacks. PHYSICAL EXAM: GENERAL: alert, weak, awake oriented x 3 HEENT: EOMI, Sclera non icteric, moist mucosa NECK: Supple, no JVD, trachea midline LUNGS: Diminished breath sounds bilaterally. No wheezes HEART: Regular rate and rhythm. Normal S1 and S2, without murmurs ABD: Abdomen morbidly obese, soft, nontender. Bowel sounds present EXT: No clubbing cyanosis or edema NEURO: Alert and oriented to person, follows commands Vital Signs (last 8hr) Date Time Temp Pulse Resp B/P (MAP) Pulse Ox O2 Delivery O2 Flow Rate FiO2 08/12/24 12:01 N/A Room Air 21 08/12/24 12:00 97.9 90 18 146/87 98 Room Air 08/12/24 11:52 96 Room Air* 0 21 08/12/24 09:59 97.7 90 15 142/87 98 Room Air* 0 21 08/12/24 07:30 97.9 94 22 126/87 99 Room Air* 0 21 08/12/24 06:40 96 18 172/92 96 Room Air* 0 21 08/12/24 05:44 97 20 150/95 98 Room Air* 0 21 LABS: Hematology Labs: Test 08/12/24 05:31 08/12/24 05:30 Range/Units Erythrocyte Sedimentation Rate 16 0-20 MM/HR White Blood Count 6.7 4.8-10.8 K/uL Red Blood Count 4.17 4.00-5.50 MIL/uL Hemoglobin 10.9 L 12.0-16.0 g/dL Hematocrit 35.6 L 36-48 % Mean Corpuscular Volume 85.4 80-100 fL Mean Corpuscular Hemoglobin 26.1 L 27.0-33.0 pg Mean Corpuscular Hemoglobin Concent 30.6 L 32.0-36.0 g/dL Red Cell Distribution Width 17.5 H 11.0-15.5 % Platelet Count 449 H 130-400 K/uL Mean Platelet Volume 9.7 7.5-10.5 fL Immature Granulocyte % (Auto) 0.3 0-1 % Neutrophils (%) (Auto) 54.3 40.0-77.0 % Lymphocytes (%) (Auto) 39.0 21.0-51.0 % Monocytes (%) (Auto) 4.0 3.0-13.0 % Eosinophils (%) (Auto) 2.1 0.0-8.0 % Basophils (%) (Auto) 0.3 0.0-5.0 % Neutrophils # (Auto) 3.7 1.8-7.7 K/uL Lymphocytes # (Auto) 2.6 1.0-4.8 K/uL Monocytes # (Auto) 0.3 0.1-1.0 K/uL Eosinophils # (Auto) 0.14 0.00-0.70 K/uL Basophils # (Auto) 0.02 0.00-0.20 K/uL Absolute Immature Granulocyte (auto 0.02 0-1 K/uL Nucleated Red Blood Cells 0.0 0.0-0.19 % Red Blood Cell Morphology See comments Chemistry Labs: Test 08/12/24 11:52 08/12/24 05:31 08/12/24 05:30 Range/Units Whole Blood Glucose 94 70-110 MG/DL Hemoglobin A1c 6.4 H 4.0-6.0 % Estimated Average Glucose (eAG) 137 H 70-126 mg/dL Magnesium Level 1.70 L 1.80-2.40 mg/dL Total Bilirubin 0.6 0.2-1.0 mg/dL Direct Bilirubin 0.1 0.0-0.3 mg/dL Aspartate Amino Transf (AST/SGOT) 31 10-37 U/L Alanine Aminotransferase (ALT/SGPT) 32 12-78 U/L Alkaline Phosphatase 110 50-136 U/L Lactate Dehydrogenase 203 81-234 U/L C-Reactive Protein, Quantitative 16.60 H 0.5-3.0 mg/L Total Protein 6.9 6.0-8.3 g/dL Albumin 3.4 L 3.5-5.0 g/dL Procalcitonin < 0.05 L 0.05-0.5 ng/mL Thyroid Stimulating Hormone (TSH) 2.29 # 0.36-3.74 uIU/mL Sodium Level 140 136-145 mmol/L Potassium Level 3.6 3.5-5.1 mmol/L Chloride Level 105 101-111 mmol/L Carbon Dioxide Level 25 21-32 mmol/L Blood Urea Nitrogen 22 H 7-18 mg/dL Creatinine 1.1 H 0.5-1.0 mg/dL Glomerular Filtration Rate Calc 74 >90 mL/min Random Glucose 103 70-105 mg/dL Total Calcium 8.9 8.5-10.1 mg/dL Troponin I High Sensitivity 17 4-50 ng/L B-Type Natriuretic Peptide 414 H 0-100 pg/mL Serum Test, Qualitative NEGATIVE NEGATIVE Coagulation Labs: Test 08/12/24 05:30 Range/Units Prothrombin Time 11.9 H 9.6-11.6 SEC Prothromb Time International Ratio 1.14 0.85-1.15 Activated Partial Thromboplast Time 28.6 26.3-35.5 SEC DIAGNOSTICS / RADIOLOGY RESULTS: [ ] IMAGING REPORT Signed PATIENT: ROSELIA FRIEND MR#: [id number] : 2005 SEX: F AGE: 19 LOCATION: 2AH ORDER 0941 STATUS: ADM IN REPORT#: [id number] SERVICE REASON: r/o any DVT, lower extremity edema, hx of heart failure ORDERING PHYSICIAN: YESSICA PHILLIP MD PROCEDURE: VENOUS REDD - US VENOUS DOPPLER BILATERAL US VENOUS DOPPLER BILATERAL HISTORY: DVT COMPARISON: 02/04/2024 TECHNIQUE: Bilateral lower extremity venous Doppler ultrasound study was performed. FINDINGS: The common femoral, femoral, popliteal, and posterior tibial veins are visualized. Normal flow with augmentation and compressibilities are demonstrated. The greater saphenous veins are also seen and grossly patent. IMPRESSION: 1. No evidence of deep venous thrombosis is seen. DICTATED BY: NICHOLAS CARDOSO MD DATE: 08/12/241528 ELECTRONICALLY SIGNED BY: NICHOLAS CARDOSO MD DATE: 08/12/24 153 IMAGING REPORT Signed PATIENT: ROSELIA FRIEND MR#: [id number] : 2005 SEX: F AGE: 19 LOCATION: [facility] ORDER STATUS: REG ER REPORT#: [id number] SERVICE 0656 REASON: pulmonary edema ORDERING PHYSICIAN: NARINDER MALONEY MD PROCEDURE: CHEST WO - CT CHEST W/O CONTRAST CT CHEST W/O CONTRAST HISTORY: Pulmonary edema COMPARISON: None TECHNIQUE: Multiple sequential axial images of the chest were obtained from the thoracic inlet through upper abdomen. Patient was not given contrast through intravenous route. FINDINGS: Minimal septal thickening is seen may be related to minimal interstitial edema. There is no evidence of pulmonary nodule or parenchymal disease. No pleural effusion or pericardial effusion is seen. There is no evidence of pneumothorax. There are normal size mediastinal and hilar lymph nodes. The heart is not enlarged. Degenerative changes of the thoracolumbar spine are present. There is no evidence of adrenal nodule. Fatty changes of the liver are noted. IMPRESSION: 1. Minimal septal thickening may be related to minimal interstitial edema. CT was performed with one or more following dose reduction techniques: automated exposure control, adjustment of the mA and kv according to patient's size, or use of a iterative reconstruction technique. DICTATED BY: NICHOLAS CARDOSO MD DATE: 08/12/24 0896 ELECTRONICALLY SIGNED BY: NICHOLAS CARDOSO MD DATE: 08/12/24 0854 IMAGING REPORT Signed PATIENT: ROSELIA FRIEND MR#: [id number] : 2005 SEX: F AGE: 19 LOCATION: [facility] ORDER 3 STATUS: REG ER REPORT#: [id number] SERVICE 2 REASON: SOB/CP ORDERING PHYSICIAN: NARINDER MALONEY MD PROCEDURE: CXR1VW - CHEST 1VW CHEST 1VW HISTORY: Shortness of breath, chest pain COMPARISON: 02/07/2024 FINDINGS: A frontal projection of the chest was obtained. No acute pulmonary infiltrates is seen. The heart is borderline enlarged. Prominent interstitial markings are seen. Mild degenerative changes are seen No evidence of aortic calcification is seen. IMPRESSION: 1. No acute pulmonary infiltrate is seen. Prominent interstitial markings. DICTATED BY: NICHOLAS CARDOSO MD DATE: 08/12/24913 ELECTRONICALLY SIGNED BY: NICHOLAS CARDOSO MD DATE: 08/12/24917 PLAN 2D echo Atrovent neb treatment q.6 hours p.r.n. Pulmicort q.12 PRN Smoking cessation education Continue diuresing with Lasix DC spironolactone due to GEORGE PFTs ABGs Swab for flu and COVID Electrolyte management and replacement per protocol GI and DVT prophylaxis -Arrange outpatient pulmonology referral for sleep study, PFT and follow-up management upon discharge -follow cardiology recommendations CPAP pressure support of 10 50% FiO2 at HS NEURO: Minimize central acting medications as possible. Maintain fall precautions, adequate lighting during the day PULMONARY: Supplemental 02 as needed. Maintain aspiration precautions at all times CARDIOVASCULAR: Follow hemodynamics. Vital signs per facility protocol GI & NUTRITION: Continue with nutritional support. Continue stool softeners and laxatives as needed. KIDNEYS & ELECTROLYTES: Strict monitoring of intake, output and overall fluid balance. Avoid nephrotoxic medications to the extent possible. Medications to be dosed according to renal function. Monitor electrolytes and replace as needed ENDOCRINE: Maintain blood glucose between 100-180 at all times. Hypoglycemia protocol in place INFECTIOUS DISEASE: Trend temperature, WBC and procalcitonin level Follow cultures, deescalate antibiotics as soon as possible. Panculture if new onset fever ONCOLOGY/HEMATOLOGY/COAGULATION: Monitor for s/s of bleeding Monitor hemoglobin, coagulation studies as needed SKIN: Pressure ulcer prevention per facility protocol Specialty mattress ORTHO/REHAB: Continue PT/OT Prophylaxis: Continue GI and DVT prophylaxis Code Status: Full Resuscitation Disposition: TBD Other: Total patient care time exceeds 35 minutes excluding all procedures. ATTESTATION BY PHYSICIAN I reviewed the documentation, medical decision making, and treatment plan as noted by the mid-level provider above. I agree with the findings and plan of care. Madhu Cifuentes MD, NELLY J ARNP August 12, 2024 13:00
[2024-08-12] MEDS ORDERED: IpraTROPium 0.5 MG/2.5 ML INH IH PRN (14:30)
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
--- NOTE | 2024-08-12 15:33 | HMCIMG ---
US VENOUS DOPPLER BILATERAL HISTORY: DVT COMPARISON: 02/04/2024 TECHNIQUE: Bilateral lower extremity venous Doppler ultrasound study was performed. FINDINGS: The common femoral, femoral, popliteal, and posterior tibial veins are visualized. Normal flow with augmentation and compressibilities are demonstrated. The greater saphenous veins are also seen and grossly patent. IMPRESSION: 1. No evidence of deep venous thrombosis is seen.
--- NOTE | 2024-08-12 15:37 | CONS ---
[facility] CARDIOLOGY CONSULTATION REPORT Cardiology consultation note dictated for Karime Randhawa MD Date Patient Seen: August 12, 2024 Requesting Physician: Mary Pardaa MD Reason for Consultation: CHF History of Present Illness: This is a 19-year-old female with a past medical history of hypertension, diabetes mellitus type 2, -induced cardiomyopathy (LVEF of 40-450% by echo done on 01/30/2024 at [facility]), 2D echo on 02/04/2024 with an EF of 35-40%, stage II diastolic dysfunction, severe MR, severe TR, with a PASP of 78 mmHg, morbid obesity, suspected obstructive sleep apnea, and iron deficiency anemia who presented to the ED with complaints of upper abdominal area discomfort and shortness of breath of 1 day in duration. Collection Card Clerk been consulted for CHF. The patient admitted to running out of medications for approximately 2 days, noncompliance with a low-sodium diet and a fluid restriction. BNP of 414. Chest x-ray and CT of the chest demonstrated interstitial edema. Past Medical History: As per HPI and summarized below Past Surgical History: on 01/31/2024 Family History: Noncontributory Social History: The patient lives with her . Habits: The patient denies alcohol, tobacco, or illicit drug use. Home Meds: Spironolactone 25 mg daily Jardiance 10 mg daily Entresto 24-26 mg b.i.d. Ferrous sulfate 324 mg daily Lasix 20 mg daily Current Meds: Current Medications Medications Dose Ordered Sig/[place] Start Time Stop Time Status Last Admin Furosemide 40 mg Q12H 08/12/24 10:00 09/11/24 09:59 08/12/24 09:53 Potassium Chloride 100 ml @ 100 mls/hr AD PRN 08/12/24 10:00 09/11/24 09:59 Potassium Chloride 20 meq AD PRN 08/12/24 10:00 09/11/24 09:59 Potassium Chloride 20 meq AD PRN 08/12/24 10:00 09/11/24 09:59 Magnesium Sulfate 50 ml @ 0 mls/hr PROTOCOL 08/12/24 10:00 09/11/24 09:59 Acetaminophen 650 mg Q6H PRN 08/12/24 10:00 09/11/24 09:59 Ondansetron HCl 4 mg Q6H PRN 08/12/24 10:00 09/11/24 09:59 Famotidine 20 mg BID 08/12/24 21:00 09/11/24 20:59 Insulin Human Regular INSULIN SLIDING SCAL... ACHS 08/12/24 11:30 09/11/24 11:29 Enoxaparin Sodium 40 mg DAILY 08/13/24 09:00 09/12/24 08:59 Sacubitril/ Valsartan 1 each BID 08/12/24 21:00 09/11/24 20:59 Empaglifozin 10 mg DAILY 08/13/24 09:00 09/12/24 08:59 Metoprolol Succinate 25 mg DAILY 08/13/24 09:00 09/12/24 08:59 Spironolactone 25 mg DAILY 08/13/24 09:00 09/12/24 08:59 Ipratropium [place] 0.5 MG Q8H PRN 08/12/24 14:30 09/11/24 14:29 Budesonide 0.5 mg BIDRESP 08/12/24 18:00 09/11/24 17:59 Review of Systems: CONST: No fever, fatigue, or weight changes. EYES: No recent vision problems. ENT: No congestion, ear pain, or sore throat. C/V: No chest pain, palpitations, or edema. RESP: Admits to shortness of breath GI: No abdominal pain, nausea, vomiting, constipation, or diarrhea. : No incontinence or dysuria. SKIN: No rash. NEURO: No headache, focal numbness or weakness, dizziness, or seizures. PSYCH: No depression or anxiety. HEME: No abnormal bruising or bleeding. LYMPH: No swollen glands. Physical Examination: GENERAL: No acute distress. HEAD: Normal with no signs of head trauma. EYES: PERRLA, EOMI, conjunctiva and sclera normal. ENT: Hearing grossly intact, normal oropharynx. NECK: Supple without JVD. There is no tenderness, lymphadenopathy, or masses. No thyromegaly. Normal carotid upstrokes without bruits. LUNGS: Diminished breath sounds to bilateral bases HEART: Normal rate and rhythm. Normal S1 and S2 without murmurs, gallop or rub. VASC: Peripheral pulses +2 bilaterally. ABD: Bowel sounds normal, soft, nontender, no masses, no organomegaly. No audible bruits. : Not examined LYMPH: No lymphadenopathy noted. EXT: No clubbing, cyanosis or edema. SKIN: No rashes or lesions noted. NEURO: Awake, alert, and oriented x3. No focal sensory or strength deficits noted. Vital Signs (last 8hr) Date Time Temp Pulse Resp B/P (MAP) Pulse Ox O2 Delivery O2 Flow Rate FiO2 08/12/24 12:01 N/A Room Air 21 08/12/24 12:00 97.9 90 18 146/87 98 Room Air 08/12/24 11:52 96 Room Air* 0 21 08/12/24 09:59 97.7 90 15 142/87 98 Room Air* 0 21 08/12/24 07:30 97.9 94 22 126/87 99 Room Air* 0 21 Laboratory: Hematology Labs: Test 08/12/24 05:31 08/12/24 05:30 Range/Units Erythrocyte Sedimentation Rate 16 0-20 MM/HR White Blood Count 6.7 4.8-10.8 K/uL Red Blood Count 4.17 4.00-5.50 MIL/uL Hemoglobin 10.9 L 12.0-16.0 g/dL Hematocrit 35.6 L 36-48 % Mean Corpuscular Volume 85.4 80-100 fL Mean Corpuscular Hemoglobin 26.1 L 27.0-33.0 pg Mean Corpuscular Hemoglobin Concent 30.6 L 32.0-36.0 g/dL Red Cell Distribution Width 17.5 H 11.0-15.5 % Platelet Count 449 H 130-400 K/uL Mean Platelet Volume 9.7 7.5-10.5 fL Immature Granulocyte % (Auto) 0.3 0-1 % Neutrophils (%) (Auto) 54.3 40.0-77.0 % Lymphocytes (%) (Auto) 39.0 21.0-51.0 % Monocytes (%) (Auto) 4.0 3.0-13.0 % Eosinophils (%) (Auto) 2.1 0.0-8.0 % Basophils (%) (Auto) 0.3 0.0-5.0 % Neutrophils # (Auto) 3.7 1.8-7.7 K/uL Lymphocytes # (Auto) 2.6 1.0-4.8 K/uL Monocytes # (Auto) 0.3 0.1-1.0 K/uL Eosinophils # (Auto) 0.14 0.00-0.70 K/uL Basophils # (Auto) 0.02 0.00-0.20 K/uL Absolute Immature Granulocyte (auto 0.02 0-1 K/uL Nucleated Red Blood Cells 0.0 0.0-0.19 % Red Blood Cell Morphology See comments Chemistry Labs: Test 08/12/24 11:52 08/12/24 05:31 08/12/24 05:30 Range/Units Whole Blood Glucose 94 70-110 MG/DL Hemoglobin A1c 6.4 H 4.0-6.0 % Estimated Average Glucose (eAG) 137 H 70-126 mg/dL Magnesium Level 1.70 L 1.80-2.40 mg/dL Total Bilirubin 0.6 0.2-1.0 mg/dL Direct Bilirubin 0.1 0.0-0.3 mg/dL Aspartate Amino Transf (AST/SGOT) 31 10-37 U/L Alanine Aminotransferase (ALT/SGPT) 32 12-78 U/L Alkaline Phosphatase 110 50-136 U/L Lactate Dehydrogenase 203 81-234 U/L C-Reactive Protein, Quantitative 16.60 H 0.5-3.0 mg/L Total Protein 6.9 6.0-8.3 g/dL Albumin 3.4 L 3.5-5.0 g/dL Procalcitonin < 0.05 L 0.05-0.5 ng/mL Thyroid Stimulating Hormone (TSH) 2.29 # 0.36-3.74 uIU/mL Sodium Level 140 136-145 mmol/L Potassium Level 3.6 3.5-5.1 mmol/L Chloride Level 105 101-111 mmol/L Carbon Dioxide Level 25 21-32 mmol/L Blood Urea Nitrogen 22 H 7-18 mg/dL Creatinine 1.1 H 0.5-1.0 mg/dL Glomerular Filtration Rate Calc 74 >90 mL/min Random Glucose 103 70-105 mg/dL Total Calcium 8.9 8.5-10.1 mg/dL Troponin I High Sensitivity 17 4-50 ng/L B-Type Natriuretic Peptide 414 H 0-100 pg/mL Serum Test, Qualitative NEGATIVE NEGATIVE Coagulation Labs: Test 08/12/24 05:30 Range/Units Prothrombin Time 11.9 H 9.6-11.6 SEC Prothromb Time International Ratio 1.14 0.85-1.15 Activated Partial Thromboplast Time 28.6 26.3-35.5 SEC Diagnostics / Radiology: Impression and Plan: Acute on chronic combined systolic and diastolic congestive heart failure Hypertension Diabetes mellitus type 2 -induced cardiomyopathy (LVEF of 40-450% by echo done on 01/30/2024 at [facility]) 2D echo on 02/04/2024 with an EF of 35-40%, stage II diastolic dysfunction, severe MR, severe TR, with a PASP of 78 mmHg Morbid obesity Suspected obstructive sleep apnea Iron deficiency anemia Acute on chronic combined systolic and diastolic congestive heart failure The patient admitted to running out of medications for approximately 2 days, noncompliance with a low-sodium diet and a fluid restriction. BNP of 414 Chest x-ray and CT of the chest demonstrated interstitial edema. -Continue GDMT: Metoprolol succinate 25 mg daily, Entresto 24-26 mg b.i.d., Spironolactone 25 mg daily, and Jardiance 10 mg daily -Continue diuresis with Lasix 40 mg IV b.i.d. -Obtain daily weights, strict intake and output, 1.5 L fluid restriction per day -Pending Echo ATTESTATION BY PHYSICIAN I have seen and examined the patient, reviewed the above documentation, participated in medical decision making, made necessary modifications, and agree with the treatment plan as documented by my mid-level provider above. Patient requires diuresis and guideline directed medical therapy. Because she has a an onset recently of cardiomyopathy and has been readmitted, we will reassess ventricular function with vigilance for potential deterioration in EF over recent weeks or months. MD DEONTE Anderson [facility] August 12, 2024 15:37 KARIME RANDHAWA MD August 12, 2024 20:43
[2024-08-12] MEDS ORDERED: MAGNESIUM 2GM PREMIX 50ML 50 ML IV PRN (16:30)
[2024-08-12] MEDS ORDERED: PoTASSium chloRIDE 20MEQ ER 20 MEQ ERTAB PO PRN (16:30)
[2024-08-12] MEDS: MAGNESIUM 2GM PREMIX 50ML 50 ML IV SCH (16:47)
[2024-08-12] MEDS: PoTASSium chloRIDE 20MEQ ER 20 MEQ ERTAB PO PRN (16:48)
[2024-08-12 17:29] LABS: COVID19 (SARS ANTIGEN RAPID) PRESUMPTIVE NEGATIVE (NEGATIVE); INFLUENZA TYPE A Negative For Type A (NEGATIVE); INFLUENZA TYPE B Negative For Type B (NEGATIVE)
[2024-08-12 18:01] LABS: CREATININE 1.1 mg/dL (0.5-1.0); POTASSIUM 3.8 mmol/L (3.5-5.1)
[2024-08-12] MEDS: BUDESONIDE 0.5 MG/2 ML INH IH SCH (19:59)
[2024-08-12] MEDS: FAMOTIDINE 20MG TAB PO SCH (20:48)
[2024-08-12] MEDS: SACUBITRIL/VALSARTAN 1 EACH TABLET PO SCH (20:48)
--- NOTE | 2024-08-12 21:53 | HMCSR ---
APPROVED REPORT EXAM: Two-dimensional and M-mode echocardiogram with Doppler and color Doppler. INDICATION ICD: Heart failure exacerbation 2D Dimensions RVDd4.5 cmLVEF(%)33.1 (>50%)LVED Vol(simp.)227.9 mL IVSd0.9 (0.7-1.1cm)FS(%)16 %LVES Vol(simp.)166.3 mL LVDd6.1 (3.8-5.6cm)LA (2D)4.5 (1.6-4.0cm)LVEF(%, simp.)27 % PWd1.1 (0.7-1.1cm)Ao Root(2D)2.6 (2.0-3.7cm)LA ESV INDEX (BP)47.29 mL/m2 IVSs1.0 cmLVOT diam1.9 (1.8-2.4cm) LVDs5.1 (2.5-4.0cm) PWs1.5 cm Deformation Strain Apical 4-6.7 % Apical 2-5.3 % Apical 3-5.9 % Global Strain-5.9 % M-Mode Dimensions EPSS2.3 cm LA (MM)5.2 (1.6-4.0cm) Ao Root(MM)2.5 (2.0-3.7cm) Aortic Valve AoV Vmax1.2 m/Randolph Peak GR6.2 mmHgLVOT Vmax1.2 m/s AoV VTI0.2 mAo Mean GR3.7 mmHgLVOT VTI0.18 m AMARILIS (VMAX)2.76 cm2Al P1/2T732 msAVA (VTI) 3.1 cm2 Mitral Valve MV E Kauc312.2 cm/sDECEL Hbmm570 msMV Peak GR15 mmHg P 1/2 T43 msMV Mean GR8 mmHg MVA (PHT)5.2 cm2MVA (VTI)2.11 cm2 MR APY304 cm2 TDI E/E' Usagek88.6E/E' Qkufrxb56.2 Medial E' Peak V5.52 cm/sLateral E' Peak V9.59 cm/s Pulmonary Valve PV Vmax0.8 m/s PV Peak GR2.4 mmHg Tricuspid Valve TR Vmax3.5 m/sRAP (EST) 15 cnPzWYPS66.3 mmHg TR Peak GR50.3 mmHg Left Ventricle The left ventricle is moderately to severely dilated. Spontaneous contrast noted in LV Severely reduc ed GLS -6.0%. Basal inferior and inferolateral segments are mildly hypokinetic. All the rest segments are severely du3phyvxzsg or akinetic. There is normal left ventricular wall thickness. Biplane LVEF is 25%. Indeterminate diastolic function. Right Ventricle The right ventricle is moderately dilated. The right ventricular systolic function is depressed. Atria Left atrial appendage seen in study. The left atrium is moderately dilated. LASVI 47.0mL/m. The righ t atrium is borderline dilated. Aortic Valve The aortic valve is normal in structure. Mild aortic regurgitation. There is no aortic valvular steno sis. Mitral Valve Posterior mitral valve leaflet has restricted excursion. There is severe mitral valve regurgitation n oted by color doppler. Could be underestimated due to low flow. MVA planimetry 2.2cm. Tricuspid Valve The tricuspid valve is normal in structure. There is moderate tricuspid valve regurgitation noted. RV SP 65.0 mmHg. Pulmonic Valve The pulmonary valve is normal in structure. There is mild pulmonic valvular regurgitation. Great Vessels The aortic root is normal in size. IVC is dilated and collapses <50% with inspiration. Pericardium No pericardial effusion. Other Information Quality : Adequate Conclusion Biplane LVEF is 25%. Severely reduced GLS -6.0%. Basal inferior and inferolateral segments are mildly hypokinetic. All the rest segments are severely hyokinetic or akinetic. The left ventricle is moderately to severely dilated. Spontaneous contrast noted in LV E-septal separation 2.3cm implies low stroke volume. The left atrium is moderately dilated. LASVI 47.0mL/m. The right ventricle is moderately dilated. The right ventricular systolic function is depressed. There is severe mitral valve regurgitation noted by color doppler. There is moderate tricuspid valve regurgitation noted. RVSP 65.0 mmHg.
[2024-08-13 00:16] VITALS: BP 109/65; PULSE 91; RESP 18; TEMP 98.4
[2024-08-13 00:18] VITALS: PULSE 82; RESP 25; O2SAT 96
[2024-08-13 04:36] VITALS: BP 123/78; PULSE 83; RESP 20; TEMP 97.4
[2024-08-13 04:46] LABS: BASOPHILS # (AUTO) 0.03 K/uL (0.00-0.20); BASOPHILS % (AUTO) 0.4 % (0.0-5.0); EOSINOPHILS # (AUTO) 0.22 K/uL (0.00-0.70); EOSINOPHILS % (AUTO) 3.3 % (0.0-8.0); HEMATOCRIT 40.2 % (36-48); IMMATURE GRANULOCYTE ABSOLUTE 0.04 K/uL (0-1); LYMPHOCYTES % (AUTO) 30.2 % (21.0-51.0); MEAN CORPUSCULAR HEMOGLOBIN 25.8 pg (27.0-33.0); MEAN CORPUSCULAR HGB CONC 30.3 g/dL (32.0-36.0); MONOCYTES # (AUTO) 0.3 K/uL (0.1-1.0); MONOCYTES % (AUTO) 4.3 % (3.0-13.0); NEUTROPHILS # (AUTO) 4.1 K/uL (1.8-7.7); NEUTROPHILS % (AUTO) 61.2 % (40.0-77.0); PLATELET COUNT (AUTO) 444 K/uL (130-400); RED BLOOD CELL COUNT(AUTO) 4.73 MIL/uL (4.00-5.50); RED CELL DISTRIBUTION WIDTH 17.2 % (11.0-15.5); WHITE BLOOD COUNT (AUTO) 6.8 K/uL (4.8-10.8)
[2024-08-13 05:14] LABS: ALBUMIN 3.4 g/dL (3.5-5.0); BILIRUBIN,TOTAL 0.9 mg/dL (0.2-1.0); CREATININE 0.9 mg/dL (0.5-1.0); MAGNESIUM 1.9 mg/dL (1.80-2.40); POTASSIUM 3.5 mmol/L (3.5-5.1); TOTAL PROTEIN, SERUM 7.8 g/dL (6.0-8.3)
[2024-08-13 06:36] VITALS: PULSE 82; RESP 20; O2SAT 98
[2024-08-13 07:52] VITALS: BP 128/72; PULSE 77; RESP 20; TEMP 97.7
[2024-08-13 08:13] LABS: RHEUMATOID ARTHRITIS FACTOR <10.0 IU/mL (<14.0)
[2024-08-13] MEDS ORDERED: SPIRONOLACTONE 25 MG TAB PO SCH (09:00)
[2024-08-13] MEDS: ENOXAPARIN SODIUM 40 MG/0.4 ML SYRINGE SQ SCH (09:36)
[2024-08-13] MEDS: EMPAGLIFLOZIN 10MG TABLET PO SCH (09:37)
[2024-08-13] MEDS: metOPROLol sucCINATE 25 MG TAB.SR.24H PO SCH (09:37)
--- NOTE | 2024-08-13 11:14 | PN ---
[facility] PROGRESS NOTE Date Patient Seen: August 13, 2024 Time of Visit: 11:14 Supervising Physician: Madhu Cifuentes MD Primary Care Physician: SELF REFERRAL Outpatient Specialists: [NONE Inpatient Consults: JESSICA/ DR RANDHAWA PROBLEM LIST: Acute systolic and diastolic heart failure exacerbation with history of LV EF of 35-40% on previous echo, POA Suspected undiagnosed and untreated POPEYE/OHS, POA Morbid obesity BMI 44.5, POA Underlying history of hypertension , POA CKD stage 2 Hyperglycemia, POA Chronic anemia, POA Thrombocytosis, POA Hypomagnesemia Mild hypoalbuminemia Hypertension, obesity, type 2 diabetes mellitus, 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 Smoking cessation education Continue diuresing with Lasix PO DC spironolactone due to GEORGE PFTs mild obstructive and restrictive PFT's she will need to follow up with pulmonology on DC and get PFT's once at baseline resp status flu and COVID rule out, Electrolyte management and replacement per protocol GI and DVT prophylaxis -Arrange outpatient pulmonology referral for sleep study, PFT and follow-up management upon discharge -follow cardiology recommendations CPAP pressure support of 10 50% FiO2 at HS INTERVAL HISTORY: NO major overnight events. pt in no apparent distress. She is hemodynamically stable saturating 98% on room air. CBC unremarkable. Kidneys have improved creatinine 0.9 GFR 94 glucose 101 mg/dL and albumin of 3.4. 2D echo shows biplane LVEF is 25%. Severely reduced GLS -6.0%. Basal inferior and inferolateral segments are mildly hypokinetic. All the rest segments are severely hyokinetic or akinetic. The left ventricle is moderately to severely dilated. Spontaneous contrast noted in LV E-septal separation 2.3cm implies low stroke volume. The left atrium is moderately dilated. LASVI 47.0mL/m. The right ventricle is moderately dilated. The right ventricular systolic function is depressed. There is severe mitral valve regurgitation noted by color doppler. There is moderate tricuspid valve regurgitation noted. RVSP 65.0 mmHg. Wan venous doppler negative for DVT. REVIEW OF SYSTEMS: General: No malaise or fever. Neurological: No fainting episodes or seizures. HEENT: No nasal congestion or nasal secretion. Respiratory: no dyspnea, shortness and breath, cough or wheezing. Cardiac: No chest pain or palpitations. Gastrointestinal: No vomiting or diarrhea. Genitourinary: No dysuria hematuria. Skin: No rashes or lesions. Hematological: No bruises or bleeding. Musculoskeletal: No joint pains or arthralgias. Psychiatric: No depression or panic attacks. PHYSICAL EXAM: GENERAL: alert, weak, awake oriented x 3 HEENT: EOMI, Sclera non icteric, moist mucosa NECK: Supple, no JVD, trachea midline LUNGS: Diminished breath sounds bilaterally. No wheezes HEART: Regular rate and rhythm. Normal S1 and S2, without murmurs ABD: Abdomen morbidly obese, soft, nontender. Bowel sounds present EXT: No clubbing cyanosis or edema NEURO: Alert and oriented to person, follows commands Vital Signs (last 8hr) Date Time Temp Pulse Resp B/P (MAP) Pulse Ox O2 Delivery O2 Flow Rate FiO2 08/13/24 07:52 97.7 77 20 128/72 98 Room Air 08/13/24 06:36 82 20 08/13/24 06:36 82 20 N/A Room Air 21 08/13/24 04:36 97.3 83 20 123/78 98 CPAP LABS: Hematology Labs: Test 08/13/24 04:20 08/12/24 05:31 08/12/24 05:30 Range/Units White Blood Count 6.8 4.8-10.8 K/uL Red Blood Count 4.73 4.00-5.50 MIL/uL Hemoglobin 12.2 12.0-16.0 g/dL Hematocrit 40.2 36-48 % Mean Corpuscular Volume 85.0 80-100 fL Mean Corpuscular Hemoglobin 25.8 L 27.0-33.0 pg Mean Corpuscular Hemoglobin Concent 30.3 L 32.0-36.0 g/dL Red Cell Distribution Width 17.2 H 11.0-15.5 % Platelet Count 444 H 130-400 K/uL Mean Platelet Volume 9.4 7.5-10.5 fL Immature Granulocyte % (Auto) 0.6 0-1 % Neutrophils (%) (Auto) 61.2 40.0-77.0 % Lymphocytes (%) (Auto) 30.2 21.0-51.0 % Monocytes (%) (Auto) 4.3 3.0-13.0 % Eosinophils (%) (Auto) 3.3 0.0-8.0 % Basophils (%) (Auto) 0.4 0.0-5.0 % Neutrophils # (Auto) 4.1 1.8-7.7 K/uL Lymphocytes # (Auto) 2.0 1.0-4.8 K/uL Monocytes # (Auto) 0.3 0.1-1.0 K/uL Eosinophils # (Auto) 0.22 0.00-0.70 K/uL Basophils # (Auto) 0.03 0.00-0.20 K/uL Absolute Immature Granulocyte (auto 0.04 0-1 K/uL Nucleated Red Blood Cells 0.0 0.0-0.19 % Erythrocyte Sedimentation Rate 16 0-20 MM/HR Red Blood Cell Morphology See comments Chemistry Labs: Test 08/13/24 05:27 08/13/24 04:20 08/12/24 05:31 08/12/24 05:30 Range/Units Whole Blood Glucose 121 H 70-110 MG/DL Sodium Level 143 136-145 mmol/L Potassium Level 3.5 3.5-5.1 mmol/L Chloride Level 106 101-111 mmol/L Carbon Dioxide Level 26 21-32 mmol/L Blood Urea Nitrogen 14 7-18 mg/dL Creatinine 0.9 0.5-1.0 mg/dL Glomerular Filtration Rate Calc 94 >90 mL/min Random Glucose 101 70-105 mg/dL Total Calcium 9.1 8.5-10.1 mg/dL Magnesium Level 1.90 1.80-2.40 mg/dL Total Bilirubin 0.9 # 0.2-1.0 mg/dL Aspartate Amino Transf (AST/SGOT) 29 10-37 U/L Alanine Aminotransferase (ALT/SGPT) 29 12-78 U/L Alkaline Phosphatase 109 50-136 U/L Total Protein 7.8 6.0-8.3 g/dL Albumin 3.4 L 3.5-5.0 g/dL Hemoglobin A1c 6.4 H 4.0-6.0 % Estimated Average Glucose (eAG) 137 H 70-126 mg/dL Direct Bilirubin 0.1 0.0-0.3 mg/dL Lactate Dehydrogenase 203 81-234 U/L C-Reactive Protein, Quantitative 16.60 H 0.5-3.0 mg/L Procalcitonin < 0.05 L 0.05-0.5 ng/mL Thyroid Stimulating Hormone (TSH) 2.29 # 0.36-3.74 uIU/mL Troponin I High Sensitivity 17 4-50 ng/L B-Type Natriuretic Peptide 414 H 0-100 pg/mL Serum Test, Qualitative NEGATIVE NEGATIVE Coagulation Labs: Test 08/12/24 05:30 Range/Units Prothrombin Time 11.9 H 9.6-11.6 SEC Prothromb Time International Ratio 1.14 0.85-1.15 Activated Partial Thromboplast Time 28.6 26.3-35.5 SEC DIAGNOSTICS / RADIOLOGY RESULTS: [ ] IMAGING REPORT Signed PATIENT: ROSELIA FRIEND MR#: [id number] : 2005 SEX: F AGE: 19 LOCATION: [facility] ORDER [id number] STATUS: ADM IN REPORT#: [id number] SERVICE [id number] REASON: heart failure exacerbation, heart clinic to read ORDERING PHYSICIAN: YESSICA PHILLIP MD PROCEDURE: ECHO CMP - ECHO 2-D COMPLETE APPROVED REPORT EXAM: Two-dimensional and M-mode echocardiogram with Doppler and color Doppler. INDICATION ICD: Heart failure exacerbation 2D Dimensions RVDd 4.5 cm LVEF(%) 33.1 (>50%) LVED Vol(simp.) 227.9 mL IVSd 0.9 (0.7-1.1cm) FS(%) 16 % LVES Vol(simp.) 166.3 mL LVDd 6.1 (3.8-5.6cm) LA (2D) 4.5 (1.6-4.0cm) LVEF(%, simp.) 27 % PWd 1.1 (0.7-1.1cm) Ao Root(2D) 2.6 (2.0-3.7cm) LA ESV INDEX (BP) 47.29 mL/m2 IVSs 1.0 cm LVOT diam 1.9 (1.8-2.4cm) LVDs 5.1 (2.5-4.0cm) PWs 1.5 cm Deformation Strain Apical 4 -6.7 % Apical 2 -5.3 % Apical 3 -5.9 % Global Strain -5.9 % M-Mode Dimensions EPSS 2.3 cm LA (MM) 5.2 (1.6-4.0cm) Ao Root(MM) 2.5 (2.0-3.7cm) Aortic Valve AoV Vmax 1.2 m/s Ao Peak GR 6.2 mmHg LVOT Vmax 1.2 m/s AoV VTI 0.2 m Ao Mean GR 3.7 mmHg LVOT VTI 0.18 m AMARILIS (VMAX) 2.76 cm2 Al P1/2T 732 ms AMARILIS (VTI) 3.1 cm2 Mitral Valve MV E Vmax 174.2 cm/s DECEL Time 135 ms MV Peak GR 15 mmHg P 1/2 T 43 ms MV Mean GR 8 mmHg MVA (PHT) 5.2 cm2 MVA (VTI) 2.11 cm2 MR VTI 161 cm2 TDI E/E' Medial 31.6 E/E' Lateral 18.2 Medial E' Peak V 5.52 cm/s Lateral E' Peak V 9.59 cm/s Pulmonary Valve PV Vmax 0.8 m/s PV Peak GR 2.4 mmHg Tricuspid Valve TR Vmax 3.5 m/s RAP (EST) 15 mmHg RVSP 65.3 mmHg TR Peak GR 50.3 mmHg Left Ventricle The left ventricle is moderately to severely dilated. Spontaneous contrast noted in LV Severely reduced GLS -6.0%. Basal inferior and inferolateral segments are mildly hypokinetic. All the rest segments are severely [id number] or akinetic. There is normal left ventricular wall thickness. Biplane LVEF is 25%. Indeterminate diastolic function. Right Ventricle The right ventricle is moderately dilated. The right ventricular systolic function is depressed. Atria Left atrial appendage seen in study. The left atrium is moderately dilated. LASVI 47.0mL/m. The right atrium is borderline dilated. Aortic Valve The aortic valve is normal in structure. Mild aortic regurgitation. There is no aortic valvular stenosis. Mitral Valve Posterior mitral valve leaflet has restricted excursion. There is severe mitral valve regurgitation noted by color doppler. Could be underestimated due to low flow. MVA planimetry 2.2cm. Tricuspid Valve The tricuspid valve is normal in structure. There is moderate tricuspid valve regurgitation noted. RVSP 65.0 mmHg. Pulmonic Valve The pulmonary valve is normal in structure. There is mild pulmonic valvular regurgitation. Great Vessels The aortic root is normal in size. IVC is dilated and collapses <50% with inspiration. Pericardium No pericardial effusion. Other Information Quality : Adequate Conclusion Biplane LVEF is 25%. Severely reduced GLS -6.0%. Basal inferior and inferolateral segments are mildly hypokinetic. All the rest segments are severely hyokinetic or akinetic. The left ventricle is moderately to severely dilated. Spontaneous contrast noted in LV E-septal separation 2.3cm implies low stroke volume. The left atrium is moderately dilated. LASVI 47.0mL/m. The right ventricle is moderately dilated. The right ventricular systolic function is depressed. There is severe mitral valve regurgitation noted by color doppler. There is moderate tricuspid valve regurgitation noted. RVSP 65.0 mmHg. DICTATED BY: KARIME RANDHAWA MD DATE: 08/12/24 1005 ELECTRONICALLY SIGNED BY: KARIME RANDHAWA MD DATE: 08/12/24 8714 PLAN weight loss, discussed with pt due to BMI 43 Minimize opioids, benzos, or other NEEDLE SETTER depressants due to worsening POPEYE -continue diuretics per can be switched to p.o. now Continue guideline directed medical therapy for heart failure including with the harika with Metoprolol, and Entresto, consider SGLT2i on follow up with cardiology -Arrange outpatient pulmonology referral for sleep study, PFT and follow-up management upon discharge -follow cardiology recommendations CPAP pressure support of 10 50% FiO2 at HS he is NEURO: Minimize central acting medications as possible. Maintain fall precautions, adequate lighting during the day PULMONARY: Supplemental 02 as needed. Maintain aspiration precautions at all times CARDIOVASCULAR: Follow hemodynamics. Vital signs per facility protocol GI & NUTRITION: Continue with nutritional support. Continue stool softeners and laxatives as needed. KIDNEYS & ELECTROLYTES: Strict monitoring of intake, output and overall fluid balance. Avoid nephrotoxic medications to the extent possible. Medications to be dosed according to renal function. Monitor electrolytes and replace as needed ENDOCRINE: Maintain blood glucose between 100-180 at all times. Hypoglycemia protocol in place INFECTIOUS DISEASE: Trend temperature, WBC and procalcitonin level Follow cultures, deescalate antibiotics as soon as possible. Panculture if new onset fever ONCOLOGY/HEMATOLOGY/COAGULATION: Monitor for s/s of bleeding Monitor hemoglobin, coagulation studies as needed SKIN: Pressure ulcer prevention per facility protocol Specialty mattress ORTHO/REHAB: Continue PT/OT Prophylaxis: Continue GI and DVT prophylaxis Code Status: Full Resuscitation Disposition: TBD Other: Total patient care time exceeds 35 minutes excluding all procedures. ATTESTATION BY PHYSICIAN I reviewed the documentation, medical decision making, and treatment plan as noted by the mid-level provider above. I agree with the findings and plan of care. Madhu Cifuentes MD, [facility] August 13, 2024 11:14
--- NOTE | 2024-08-13 11:33 | PN ---
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 She has noticed that she has been having increased dyspnea on exertion and family present at bedside stated that they have noticed that patient has been having shortness of breath with exertional activities. She reportd having mild orthopnea and PND. Patient was previously hospitalized in [facility] in January, after she was found to have heart failure exacerbation. Patient received IV diuresis and was discharged home on Lasix, metoprolol, Entresto, Jardiance and spironolactone. Patient stated that she has been having hard time following up as outpatient with her primary senior product integrity engineer due to issues with her medical insurance. She currently takes Lasix 20 mg daily. Family reported that she also has a history of snoring and uncontrolled symptoms of sleep apnea. She has not had outpatient sleep study done. Presentation to the hospital, patient was noted to be afebrile with T-max of 98.4 F, heart rate of 95, Labs on presentation showed WBC count of 6700, hemoglobin 10.9, platelet count of [id number]. BMP remarkable for sodium 140, potassium 3.6, CO2 of 25, BUN of 22, creatinine 1.1, BNP was elevated to 414. CT chest without contrast showed findings of interstitial pulmonary edema. Patient admitted for further treatment and management of acute systolic and diastolic heart failure exacerbation with underlying history of peripartum cardiomyopathy. Patient initiated on IV diuresis with Lasix. Consultation with Cardiology requested. Patient also with underlying obesity and uncontrolled symptoms of sleep apnea, pulmonary consultation requested. 08/13 patient is seen and examined at bedside, case discussed with the RN, no acute events overnight, patient hemodynamically stable, BP 120/72, afebrile, she is saturating normal on room air, she feels weak, less short of breath compared to time of admission, denies chest pain. is at bedside during my visit. Doppler of the lower extremities no evidence of DVT. Echocardiogram done, reported as follows: Conclusion Biplane LVEF is 25%. Severely reduced GLS -6.0%. Basal inferior and inferolateral segments are mildly hypokinetic. All the rest segments are severely hyokinetic or akinetic. The left ventricle is moderately to severely dilated. Spontaneous contrast noted in LV E-septal separation 2.3cm implies low stroke volume. The left atrium is moderately dilated. LASVI 47.0mL/m. The right ventricle is moderately dilated. The right ventricular systolic function is depressed. There is severe mitral valve regurgitation noted by color doppler. There is moderate tricuspid valve regurgitation noted. RVSP 65.0 mmHg. -patient remains admitted to the PCU -continue patient monitor -cardiology consultation requested, we will follow input and recommendation -pulmonary consultation requested, we will follow input and recommendation -continue the patient on furosemide 40 mg p.o. b.i.d. -continue Toprol-XL 25 mg p.o. daily -continue Jardiance 10 mg p.o. daily -bronchodilators per RT as needed REVIEW OF SYSTEMS CONSTITUTIONAL: Denies fevers, chills, or night sweats. No unintentional weight loss reported. NEUROLOGICAL: Denies headache, amaurosis fugax, motor weakness, sensory deficit, vertigo/spinning sensation, gait abnormalities, or tremors. ENT: No hearing loss, otalgia, otorrhea, rhinitis, rhinorrhea, hoarseness, or sore throat. CARDIOVASCULAR: SOB, PND, orthopnea, ADAN, mild lower extremity edema PULMONARY: Denies any shortness of breath, cough, phlegm/sputum, hemoptysis, pleuritic chest pain. SLEEP: Denies morning headaches, daytime somnolence or napping. Denies difficulty falling asleep, staying asleep, waking from sleep. Denies knowledge of snoring. GASTROINTESTINAL: epigastric discomfort, early satiety GENITOURINARY: Denies frequency, urgency, nocturia, hematuria or incontinence (Storage/Irritative symptoms.) Low urinary stream, straining to void, urinary intermittency or hesitancy, splitting of the voiding stream, terminal dribbling. ENDOCRINOLOGIC: Denies polyuria, polydipsia, polyphagia or heat/cold intolerances. HEMATOLOGIC: Denies thrombophilia/previous clots, or coagulopathy/bleeding disorders. ONCOLOGIC: Denies personal history of malignancy. DERMATOLOGIC: Denies rashes or pruritus. PSYCHIATRIC: Denies any suicidal or homicidal ideation. Denies hallucinations. PHYSICAL EXAM GENERAL APPEARANCE: The patient is awake, alert, sitting up on the stretcher, appears tachypneic NEUROLOGICAL: Cranial nerves II-XII grossly intact. Motor is 5/5 in bilateral upper and lower extremities proximal to distal. No sensory deficits. HEENT: Face is symmetric. Pupils are equal and reactive. Extraocular movements are intact. NECK: Supple. No JVD. No thyromegaly. No submental, submandibular, pre- /postauricular, occipital or supraclavicular lymphadenopathy. CHEST: Normal chest expansion. No Telemetry. LUNGS: Crackles noted bilateral lung bases CARDIOVASCULAR: Regular. S1 and S2 normal. No appreciable rubs, murmurs or gallops. ABDOMEN: Soft, nontender, and nondistended. There is no rebound, voluntary guarding, or rigidity. : Deferred. No Morgan. EXTREMITIES: 1+ pitting edema noted of bilateral lower extremity SKIN: No skin breakdown. Vital Signs (last 8hr) Date Time Temp Pulse Resp B/P (MAP) Pulse Ox O2 Delivery O2 Flow Rate FiO2 08/13/24 07:52 97.7 77 20 128/72 98 Room Air 08/13/24 06:36 82 20 08/13/24 06:36 82 20 N/A Room Air 21 08/13/24 04:36 97.3 83 20 123/78 98 CPAP LABS: Laboratory: Test 08/13/24 05:27 08/13/24 04:20 08/12/24 17:05 08/12/24 12:10 Range/Units Whole Blood Glucose 121 H 70-110 MG/DL White Blood Count 6.8 4.8-10.8 K/uL Red Blood Count 4.73 4.00-5.50 MIL/uL Hemoglobin 12.2 12.0-16.0 g/dL Hematocrit 40.2 36-48 % Mean Corpuscular Volume 85.0 80-100 fL Mean Corpuscular Hemoglobin 25.8 L 27.0-33.0 pg Mean Corpuscular Hemoglobin Concent 30.3 L 32.0-36.0 g/dL Red Cell Distribution Width 17.2 H 11.0-15.5 % Platelet Count 444 H 130-400 K/uL Mean Platelet Volume 9.4 7.5-10.5 fL Immature Granulocyte % (Auto) 0.6 0-1 % Neutrophils (%) (Auto) 61.2 40.0-77.0 % Lymphocytes (%) (Auto) 30.2 21.0-51.0 % Monocytes (%) (Auto) 4.3 3.0-13.0 % Eosinophils (%) (Auto) 3.3 0.0-8.0 % Basophils (%) (Auto) 0.4 0.0-5.0 % Neutrophils # (Auto) 4.1 1.8-7.7 K/uL Lymphocytes # (Auto) 2.0 1.0-4.8 K/uL Monocytes # (Auto) 0.3 0.1-1.0 K/uL Eosinophils # (Auto) 0.22 0.00-0.70 K/uL Basophils # (Auto) 0.03 0.00-0.20 K/uL Absolute Immature Granulocyte (auto 0.04 0-1 K/uL Nucleated Red Blood Cells 0.0 0.0-0.19 % Sodium Level 143 136-145 mmol/L Potassium Level 3.5 3.5-5.1 mmol/L Chloride Level 106 101-111 mmol/L Carbon Dioxide Level 26 21-32 mmol/L Blood Urea Nitrogen 14 7-18 mg/dL Creatinine 0.9 0.5-1.0 mg/dL Glomerular Filtration Rate Calc 94 >90 mL/min Random Glucose 101 70-105 mg/dL Total Calcium 9.1 8.5-10.1 mg/dL Magnesium Level 1.90 1.80-2.40 mg/dL Total Bilirubin 0.9 # 0.2-1.0 mg/dL Aspartate Amino Transf (AST/SGOT) 29 10-37 U/L Alanine Aminotransferase (ALT/SGPT) 29 12-78 U/L Alkaline Phosphatase 109 50-136 U/L Total Protein 7.8 6.0-8.3 g/dL Albumin 3.4 L 3.5-5.0 g/dL Influenza Type A Antigen Negative For Type A NEGATIVE Influenza Type B Antigen Negative For Type B NEGATIVE SARS-CoV-2 Antigen (Rapid) PRESUMPTIVE NEGATIVE NEGATIVE Rheumatoid Factor <10.0 <14.0 IU/mL Anti-Nuclear Antibody Screen Negative Negative BETSY-1 Antibody SS-A/Ro Antibody SS-B/La Antibody Sm (Stewart) IgG Antibody, Quant MOSHGIACH IgG Antibody, Quantitative Scl-70 (Scleroderma) Antibody Anti-Double Strand DNA Antibody Anti-Centromere IgG Antibody Test 08/12/24 12:03 08/12/24 06:59 08/12/24 05:31 08/12/24 05:30 Range/Units Blood Gas Specimen Type Arterial Arterial Blood pH 7.463 H 7.350-7.450 Arterial Blood Partial Pressure CO2 33 32-45 mmHg Arterial Blood Partial Pressure O2 101.2 83.0-108.0 mmHg Arterial Blood HCO3 23.0 21.0-28.0 mmol/L Arterial Blood Oxygen Saturation 97.6 94.0-98.0 % Arterial Blood Base Excess -0.1 -2.0-3.0 mmol/L Hemoglobin (Blood Gas) 12.4 12.0-16.0 g/dL Sodium (Blood Gas) 141 136-145 MMOL/L Bedside Potassium (Blood Gas) 3.8 3.4-4.5 MMOL/L Bedside Chloride (Blood Gas) 108 H 98-107 MMOL/L Bedside Glucose (Blood Gas) 105 H 65-95 MG/DL Bedside Ionized Calcium (Blood Gas) 1.18 1.15-1.33 MMOL/L Bedside Lactic Acid (Blood Gas) 1.23 H 0.36-0.75 MMOL/L Blood Gas Temperature 37.0 35.5-37.0 CELSIUS Blood Gas Vent Mode RA ROOM AIR FiO2 21.0 % Blood Gas Specimen Comment RR NONA GERIATRIC PHYSICIAN Urine Color LIGHT-YELLOW YELLOW Urine Appearance CLEAR CLEAR Urine pH 5.5 5.0-8.0 Urine Specific [place] 1.027 1.001-1.031 Urine Protein 20 H NEGATIVE mg/dL Urine Glucose (UA) NEGATIVE NEGATIVE mg/dL Urine Ketones NEGATIVE NEGATIVE mg/dL Urine Occult Blood NEGATIVE NEGATIVE Urine Nitrate NEGATIVE NEGATIVE Urine Bilirubin NEGATIVE NEGATIVE mg/dL Urine Urobilinogen 0.2 0.2-1.0 mg/dL Urine Leukocyte Esterase NEGATIVE NEGATIVE Herlinda/uL Urine RBC 0-1 0-1 /HPF Urine WBC 2-5 H 0-1 /HPF Urine Squamous Epithelial Cells FEW 0-2 /HPF Urine Bacteria RARE None Seen /HPF Urine HCG, Qualitative NEGATIVE NEGATIVE Erythrocyte Sedimentation Rate 16 0-20 MM/HR Hemoglobin A1c 6.4 H 4.0-6.0 % Estimated Average Glucose (eAG) 137 H 70-126 mg/dL Direct Bilirubin 0.1 0.0-0.3 mg/dL Lactate Dehydrogenase 203 81-234 U/L C-Reactive Protein, Quantitative 16.60 H 0.5-3.0 mg/L Procalcitonin < 0.05 L 0.05-0.5 ng/mL Thyroid Stimulating Hormone (TSH) 2.29 # 0.36-3.74 uIU/mL Red Blood Cell Morphology See comments Prothrombin Time 11.9 H 9.6-11.6 SEC Prothromb Time International Ratio 1.14 0.85-1.15 Activated Partial Thromboplast Time 28.6 26.3-35.5 SEC Troponin I High Sensitivity 17 4-50 ng/L B-Type Natriuretic Peptide 414 H 0-100 pg/mL Serum Test, Qualitative NEGATIVE NEGATIVE Current Medications Medications (Trade) Dose Ordered Sig/[place] Route PRN Reason Start Time Stop Time Status Last Admin Dose Admin Acetaminophen (TYLenol 325MG TAB) 650 mg Q6H PRN PO MILD PAIN (1-3) 08/12/24 10:00 09/11/24 09:59 Budesonide (Pulmicort 0.5 Mg/2ml) 0.5 mg BIDRESP IH 08/12/24 18:00 09/11/24 17:59 08/13/24 06:34 0.5 MG Empaglifozin (Jardiance 10mg) 10 mg DAILY PO 08/13/24 09:00 09/12/24 08:59 08/13/24 09:37 10 MG Enoxaparin Sodium (Lovenox) 40 mg DAILY SQ 08/13/24 09:00 09/12/24 08:59 08/13/24 09:36 40 MG Famotidine (Pepcid 20mg Tab) 20 mg BID PO 08/12/24 21:00 09/11/24 20:59 08/13/24 09:37 20 MG Furosemide (LASix 40MG TAB) 40 mg BID@09,17 PO 08/13/24 17:00 09/12/24 16:59 Furosemide (LASix 40MG VIAL) 40 mg Q12H IV 08/12/24 10:00 08/13/24 11:09 DC 08/12/24 20:49 40 MG Insulin Human Regular (humuLIN R 100 UNIT/ML 3ML) INSULIN SLIDING SCAL... ACHS SQ 08/12/24 11:30 09/11/24 11:29 Ipratropium [place] (AtrovENT UD) 0.5 MG Q8H PRN IH SHORTNESS OF BREATH 08/12/24 14:30 09/11/24 14:29 Magnesium Sulfate 50 ml @ 0 mls/hr PROTOCOL IV 08/12/24 10:00 09/11/24 09:59 08/13/24 05:40 20 MLS/HR Magnesium Sulfate 50 ml @ 0 mls/hr PROTOCOL PRN IV Hypomagnesemia 08/12/24 16:30 08/12/24 16:23 DC Metoprolol Succinate (TopROL XL) 25 mg DAILY PO 08/13/24 09:00 09/12/24 08:59 08/13/24 09:37 25 MG Ondansetron HCl (zoFRAN 4MG INJ) 4 mg Q6H PRN IVP NAUSEA/VOMITING 08/12/24 10:00 09/11/24 09:59 Potassium Chloride 100 ml @ 100 mls/hr AD PRN IV POTASSIUM PROTOCOL 08/12/24 10:00 09/11/24 09:59 Potassium Chloride 100 ml @ 100 mls/hr AD PRN IV POTASSIUM PROTOCOL 08/12/24 16:30 08/12/24 16:23 DC Potassium Chloride (K-Dur/Klor-Con 20meq) 20 meq AD PRN PO POTASSIUM PROTOCOL 08/12/24 10:00 09/11/24 09:59 08/13/24 05:40 20 MEQ Potassium Chloride (K-Dur/Klor-Con 20meq) 20 meq AD PRN PO POTASSIUM PROTOCOL 08/12/24 16:30 08/12/24 16:23 DC Potassium Chloride (KCl 10% Elixir 20meq/15ml) 20 meq AD PRN PO POTASSIUM PROTOCOL 08/12/24 10:00 09/11/24 09:59 Potassium Chloride (KCl 10% Elixir 20meq/15ml) 20 meq AD PRN PO POTASSIUM PROTOCOL 08/12/24 16:30 08/12/24 16:23 DC Sacubitril/ Valsartan (Entresto 24 Mg-26 Mg Tablet) 1 each BID PO 08/12/24 21:00 09/11/24 20:59 08/13/24 09:36 1 EACH Spironolactone (Aldactone 25mg) 25 mg DAILY PO 08/13/24 09:00 08/12/24 16:23 DC DIAGNOSTICS / RADIOLOGY: [ ] ASSESSMENT: Acute systolic and diastolic heart failure exacerbation with history of LV EF of 35-40%, POA History of peripartum cardiomyopathy, POA Pulmonary edema, POA History of severe tricuspid regurgitation, POA History of severe mitral valve regurgitation, POA Morbid obesity, POA Untreated obstructive sleep apnea, POA Underlying history of hypertension , POA History of type 2 diabetes mellitus , POA History of chronic anemia, POA PLAN: -patient remains admitted to the PCU -continue patient monitor -cardiology consultation requested, we will follow input and recommendation -pulmonary consultation requested, we will follow input and recommendation -continue the patient on furosemide 40 mg p.o. b.i.d. -continue Toprol-XL 25 mg p.o. daily -continue Jardiance 10 mg p.o. daily -bronchodilators per RT as needed NEURO: Minimize central acting medications as possible. Fall Precautions. Well lighted room through the day and minimize interruptions through the night to prevent acute delirium. PULMONARY: Supplemental 02 as needed BiPAP as necessary, for respiratory distress Titrate Fio2 to keep Spo2 > or = 90% DuoNebs and CPT as needed IS hourly while awake for pulmonary hygiene prn Out of bed to chair as tolerated Maintain aspiration precautions at all times CARDIOVASCULAR: Follow hemodynamics. Vital signs per facility protocol GI & NUTRITION: Continue nutritional support Aspirations precautions Prokinetic agents and laxatives as needed KIDNEYS & ELECTROLYTES: Strict monitoring of intake and output Daily weights Avoid nephrotoxic agents Monitor electrolytes and replace as needed Goal urine output of 30mL/hr or 0.5mL/kg/hr Medications to be dosed according to renal function. Avoid contrast if possible ENDOCRINE: Maintain blood glucose between 100-180 at all times. Insulin sliding scale for blood glucose management Hypoglycemia and hyperglycemia protocol in place INFECTIOUS DISEASE: Trend temperature, WBC and procalcitonin level Follow cultures, deescalate antibiotics as soon as possible. Panculture if new onset fever HEMATOLOGY & COAGULATION: Monitor H&H. Keep Hgb > 7 Transfuse 1 unit of PRBC for Hgb < 7 Transfuse 1 pack of platelets of platelets < 20, 000 Watch for any signs and symptoms of bleeding SKIN: Pressure ulcer prevention per facility protocol Specialty mattress as needed ORTHO/REHAB Continue PT/OT PRN: MEDICATIONS Tylenol 650 mg po every 4 hrs for fever zofran 4 mg IV every 6 hrs for n/v Hydralazine 5 mg IV every 4 hrs systolic pressure > 160 bowel regiment: lactulose 20 gm PO BID PRN constipation Supportive measures: Continue GI and DVT prophylaxis Disposition: Pending improvement in clinical condition All questions answered time spent: > 35 min MESFIN RAMIREZ MD August 13, 2024 11:33
[2024-08-13 12:00] VITALS: BP 134/91; PULSE 84; RESP 20; TEMP 98.6
--- NOTE | 2024-08-13 12:00 | NUR ---
pt states she needs to go home she states her boyfriends cousin is watching her 6 month old baby and the cousin is tired of watching the baby I asked boyfriend if he could go watch baby he states the pt wants him to be here with her pt states she needs to take care of her child called Dr Flynn to inform him of situation
--- NOTE | 2024-08-13 13:00 | NUR ---
pt signed consent to leave against medical advice telemetry removed iv removed
[2024-08-13] MEDS ORDERED: furoSEMIDE 40 MG TABLET PO SCH (17:00)
--- NOTE | 2024-08-14 08:59 | DS ---
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 She has noticed that she has been having increased dyspnea on e xertion and family present at bedside stated that they have noticed that patient has been having shortness of breath with exertional activities. She reportd having mild orthopnea and PND. Patient was previously hospitalized in [facility] in January, after she was found to have heart failure exacerbation. Patient received IV diuresis and was discharged home on Lasix, metoprolol, Entresto, Jardiance and spironolactone. Patient stated that she has been having hard time following up as outpatient with her primary water project engineer due to issues with her medical insurance. She currently takes Lasix 20 mg daily. Family reported that she also has a history of snoring and uncontrolled symptoms of sleep apnea. She has not had outpatient sleep study done. Presentation to the hospital, patient was noted to be afebrile with T-max of 98.4 F, heart rate of 95, Labs on presentation showed WBC count of 6700, hemoglobin 10.9, platelet count of [id number]. BMP remarkable for sodium 140, potassium 3.6, CO2 of 25, BUN of 22, creatinine 1.1, BNP was elevated to 414. CT chest without contrast showed findings of interstitial pulmonary edema. Patient admitted for further treatment and management of acute systolic and diastolic heart failure exacerbation with underlying history of peripartum cardiomyopathy. Patient initiated on IV diuresis with Lasix. Consultation with Cardiology requested. Patient also with underlying obesity and uncontrolled symptoms of sleep apnea, pulmonary consultation requested. 08/13 patient is seen and examined at bedside, case discussed with the RN, no acute events overnight, patient hemodynamically stable, BP 120/72, afebrile, she is saturating normal on room air, she feels weak, less short of breath compared to time of admission, denies chest pain. is at bedside during my visit. Doppler of the lower extremities no evidence of DVT. Echocardiogram done, reported as follows: Conclusion Biplane LVEF is 25%. Severely reduced GLS -6.0%. Basal inferior and inferolateral segments are mildly hypokinetic. All the rest segments are severely hyokinetic or akinetic. The left ventricle is moderately to severely dilated. Spontaneous contrast noted in LV E-septal separation 2.3cm implies low stroke volume. The left atrium is moderately dilated. LASVI 47.0mL/m. The right ventricle is moderately dilated. The right ventricular systolic function is depressed. There is severe mitral valve regurgitation noted by color doppler. There is moderate tricuspid valve regurgitation noted. RVSP 65.0 mmHg. -patient remains admitted to the PCU -continue mouse breeder -cardiology consultation requested, we will follow input and recommendation -pulmonary consultation requested, we will follow input and recommendation -continue the patient on furosemide 40 mg p.o. b.i.d. -continue Toprol-XL 25 mg p.o. daily -continue Jardiance 10 mg p.o. daily -bronchodilators per RT as needed I was informed by the nurse taking care of the patient and the patient decided to sign AMA, the patient has done distended the past, long discussion with the patient regarding risks of her decision, patient alert oriented x3, understood the information provided, however decided to sign AMA. Boiler Technician(s): Cardiology Assessment/Plan: final diagnosis Acute systolic and diastolic heart failure exacerbation with history of LV EF of 35-40%, POA History of peripartum cardiomyopathy, POA Pulmonary edema, POA History of severe tricuspid regurgitation, POA History of severe mitral valve regurgitation, POA Morbid obesity, POA Untreated obstructive sleep apnea, POA Underlying history of hypertension , POA History of type 2 diabetes mellitus , POA History of chronic anemia, POA Discharge Instructions: Patient has signed AMA. Advised to return to hospital if condition changes. Home Medications: Active Scripts Azithromycin (Zithromax Tri-Bruce) 500 Mg Tablet, 500 MG PO DAILY for 7 Days, #7 TAB Prov:ROULA TAYLOR NP // Nirmatrelvir/Ritonavir (Paxlovid 300-100 mg Dose Pack) 300 Mg (150 Mg X 2)-100 Mg Tab.ds.pk, 1 EACH PO AD for 5 Days, #30 TAB TAKE THREE TABLETS TOTAL TWICE A DAY FOR FIVE DAYS. Prov:ROULA TAYLOR NP Albuterol Sulfate (Ventolin Hfa/Proventil Hfa/Proair Hfa) 90 Mcg Puff, 2 PUFF IH Q4H for WHEEZING, #1 INHALER 0 Refills Prov:ROULA TAYLOR NP 04/28/24 Amoxicillin/Potassium Clav (Amox Tr-K Clv 875-125 mg Tab) 875 Mg-125 Mg Tablet, 1 EACH PO BID for 10 Days, #20 TAB 0 Refills Prov:ALEXANDRA YANG 03/29/24 Ferrous Sulfate (Ferrous Sulfate) 325 Mg (65 Mg Iron) Ectab, 1 TAB PO DAILY for 30 Days, #30 TAB 1 Refill Prov:MESFIN RAMIREZ MD 02/08/24 Cephalexin Monohydrate (Keflex) 500 Mg Cap, 1 CAP PO TID for 7 Days, #21 CAP 0 Refills Prov:MESFIN RAMIREZ MD 02/07/24 Spironolactone (Spironolactone) 25 Mg Tablet, 25 MG PO DAILY for 30 Days, #30 TAB 1 Refill Prov:MESFIN RAMIREZ MD 02/07/24 Sacubitril/Valsartan (Entresto 24 mg-26 mg Tablet) 24 Mg-26 Mg Tablet, 1 EACH PO BID for 30 Days, #60 TAB 1 Refill Prov:MESFIN RAMIREZ MD 02/07/24 Metoprolol Tartrate (Lopressor) 25 Mg Tab, 25 MG PO TID for 30 Days, #90 TAB 1 Refill Prov:MESFIN RAMIREZ MD 02/07/24 Furosemide (Lasix 20Mg Tab) 20 Mg Tablet, 20 MG PO DAILY for 30 Days, #30 TAB 1 Refill Prov:MESFIN RAMIREZ MD 02/07/24 Empagliflozin (Jardiance) 10 Mg Tablet, 10 MG PO DAILY for 30 Days, #30 TAB 1 Refill Prov:MESFIN RAMIREZ MD 02/07/24 Ondansetron (Ondansetron Odt) 4 Mg Tab.rapdis, 4 MG PO BID for 7 Days, #14 TAB Prov:ALEXANDRA YANG 10/06/23 Reported Medications Aspirin (ASPIRIN 81MG CHEW TAB) 81 Mg Tab.chew, 1 TAB PO DAILY for 30 Days, #30 TAB 0 Refills 02/05/24 Metformin HCl (Metformin HCl) 1,000 Mg Tablet, 1 TAB PO BID for 30 Days, #60 TAB 0 Refills 02/05/24 Sertraline HCl (Sertraline HCl) 50 Mg Tablet, 1 TAB PO DAILY for 30 Days, #30 TAB 0 Refills 02/05/24 Prenat Vit Comb.10/Iron/FA/Dha (Vitafol-Ob+Dha Combo Pack) 65 Mg Iron-1 Mg-250 Mg Combo..pkg, 1 EACH PO DAILY, COMB.PKG 02/05/24 Trazodone HCl (Trazodone HCl) 50 Mg Tablet, 1 TAB PO HS for 30 Days, #30 TAB 0 Refills 02/05/24 Time spent arranging discharge: 31-60 minutes MESFIN RAMIREZ MD August 14, 2024 08:59
== END 2024-08-13 13:20 | disposition left against medical advice (07) ==
LOC: EDH 04:51 → INTOOBSV 04:52 → EDHIP 04:52 → UNDOADMIN 09:35 → 2AH 11:00 → EDHIP 11:00
PROVIDERS: ADMIT Internal Medicine; ATTEND Internal Medicine
DX: I11.0 Hypertensive heart disease with heart failure (principal); I50.43 Acute on chronic combined systolic (congestive) and diastolic (congestive) heart failure; R60.0 Localized edema; E66.01 Morbid (severe) obesity due to excess calories; I42.9 Cardiomyopathy, unspecified; G47.33 Obstructive sleep apnea (adult) (pediatric); D50.9 Iron deficiency anemia, unspecified; I08.1 Rheumatic disorders of both mitral and tricuspid valves; E11.9 Type 2 diabetes mellitus without complications; F17.200 Nicotine dependence, unspecified, uncomplicated; Z20.822 Contact with and (suspected) exposure to COVID-19; Z68.41 Body mass index [BMI] 40.0-44.9, adult; Z79.84 Long term (current) use of oral hypoglycemic drugs; Z79.899 Other long term (current) drug therapy; Z98.891 History of uterine scar from previous surgery
CPT/HCPCS: 96376; 96365; 96366 ×3; 96375; 99285; 83036; 84443; 82435; 80076; 82947; 83615; 83735 ×2; 84484; 84132; 84295; 80048 ×2; 82803; 83880; 84703; 85025 ×2; 85610; 85730; 85651; 85018; 87804 ×2; 82948 ×4; 86038; 83605; 86140; 86431; 87426; 81001; 81025; 36415 ×2; 71045; 71250; 93306; 93356; 93970; 93005; 36600; 94010; 94640; 86200; 84145; 96372; 80053; 94660; G0378 ×27; J3475 ×2; J1938 ×4; J1650; 86215; 86235; 94664